=== PATIENT | female | born 1945 | race Caucasian/White ===

== ENCOUNTER → 2024-02-03 10:57 | Outpatient (REF) | payer OTHER, SELFPAY | LOC: HWRAD 10:57 | PROVIDERS: ATTENDING PHYSICIAN Internal Medicine | DX: Z13.820 Encounter for screening for osteoporosis (principal); Z12.31 Encounter for screening mammogram for malignant neoplasm of breast | CPT/HCPCS: 77063; 77067; 77080 ==

== ENCOUNTER → 2024-06-06 12:44 | Outpatient (REF) | payer OTHER, SELFPAY | LOC: HWRAD 12:44 | PROVIDERS: ATTENDING PHYSICIAN Internal Medicine | DX: S00.83XA Contusion of other part of head, initial encounter (principal); W19.XXXA Unspecified fall, initial encounter; Y92.009 Unspecified place in unspecified non-institutional (private) residence as the place of occurrence of the external cause | CPT/HCPCS: 70150 ==

== ENCOUNTER 2025-03-20 02:15 | Inpatient (IN) | payer OTHER, SELFPAY ==
[2025-03-19] VITALS (9 sets, daily range): BP systolic 96–129; BP diastolic 48–85; BMI 34.9
--- NOTE | 2025-03-19 21:06 | ED.GENMED ---
History of Present Illness
<Leny Ruiz NP - Last Filed: 03/22/25 23:26>
General
Chief Complaint: Chest Pain
Source: patient
Exam Limitations: none
Time Seen by Provider: 03/19/25 20:44
Nursing documentation reviewed up to this point in time: agreed with
History of Present Illness
History of Present Illness:
Patient to ED with complaint of chest pain. States she was walking into a store and developed a sudden onset of chest pain. States pain is on the left side and radiates to the right. No n/v/diaphoresis. No SOB. Transported to ED via EMS. Given
1 SL NTG and reports some improvement. No prior history of same. To ED accompanied by daughter.
Past History
<Leny Ruiz BREAKDOWN MAN - Last Filed: 03/22/25 23:26>
Past History
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
ED Past Surgical History: Orthopedic (left knee replacement, cervical spine surgery)
Social History
Tobacco: Non-smoker
Personal:
Living: with family
Review of Systems
<Leny Ruiz BREAKDOWN MAN - Last Filed: 03/22/25 23:26>
Review of Systems
Allergies reviewed?: Yes
All Other Systems: ROS reviewed and negative except as documented in HPI and ROS
Constitutional: Reports no symptoms
EENT: Reports no symptoms
Respiratory: Reports no symptoms
Cardiac: Reports chest pain (left chest radiating to right.)
ABD/GI: Reports no symptoms
: Reports no symptoms
Musculoskeletal: Reports no symptoms
Skin: Reports no symptoms
Neurological: Reports no symptoms
Psychiatric: Reports no symptoms
Phy Exam
<Leny Ruiz BREAKDOWN MAN - Last Filed: 03/22/25 23:26>
General Physical Exam
General Presentation: mild distress
General age: appears stated age
General Skin: warm and dry
General Habitus: normal
General Mental: alert
General Hydration: appears well hydrated
Cardiovascular Exam
Cardiovascular Exam: regular rate/rhythm and no edema
Pulmonary Exam
Pulmonary Exam: lungs clear and no respiratory distress
Gastrointestinal Exam
Gastrointestinal Exam: non tender and soft
Neurological Exam
Neurological Exam: alert, oriented x3, CN II-XII intact, no motor deficits, no sensory deficits and speech normal
Musculoskeletal Exam
Musculoskeletal Exam: full ROM and neuro vasc intact
Skin Exam
Skin Exam: normal color, warm/dry and no rash
Psychiatric Exam
Psychiatric Exam: normal mood/affect
Scores
<Leny Ruiz NP - Last Filed: 03/22/25 23:26>
Heart Score for Chest Pain Patients
STEMI patient?: No
History: Moderately Suspicious
ECG: Normal
Age: >/= 65 years
Risk Factors: >/= 3 Risk Factors or History of CAD
Troponin: >/= 3 x Normal Limit
Heart Score for Chest Pain Patients: 7
Heart Score Risk: 72.7 % MACE over next 6 weeks
Course
<Leny Ruiz NP - Last Filed: 03/22/25 23:26>
Orders/Labs/Results
Orders:
Orders
03/19/25 20:40
Electrocardiogram (*1) Urgent
Reason for Study: Chest Pain
EKG- Treatment ONCE
03/19/25 20:51
Complete Blood Count/With Diff Urgent
Comprehensive Metabolic Panel Urgent
Troponin I Urgent
03/19/25 21:06
Nitroglycerin Sublingual [Nitrostat (Sublingual)] 0.4 mg SL NOW STA
03/19/25 21:52
Electrocardiogram (*1) Urgent
Reason for Study: Chest Pain
EKG- Treatment ONCE
03/19/25 21:55
Morphine Sulfate 2 mg IV NOW STA
Ondansetron Injectable [Zofran] 4 mg IV NOW STA
03/19/25 22:18
Chest/Abd Angio w/wo Contrast CT [CT Chest/abd Angio W/wo Iv Con] Urgent
Comment:
Reason For Exam: r/o dissection
03/19/25 23:00
Flush (0.9% Sodium Chloride) [Flush (Nss)] See Dose Instructions IV PER PROTOCOL
Nitroglycerin 100 mg/250 ml [Nitroglycerin Premix] 100 mg in 250 ml IV PER PROTOCOL
Currently infusing. Continue current dose and titrate:: Yes
Titrate to keep:: Chest Pain Free
Titrate by mcg/min:: 5 mcg/min, may increase by 10 mcg/min if dose > 20 mcg/min
Frequency of titrations (minutes):: every 3-5 minutes
Maximum dose in mcg/min:: 200
Begin to taper infusion when:: Remained at goal for 2hrs
Taper by mcg/min:: 5 mcg/min
Frequency of taper (minutes) if patient maintains goal:: 30
Taper to off?: Yes
If infusion off & no longer maintaining goal:: Contact Provider
03/19/25 23:18
Troponin I Urgent
03/19/25 23:41
PTT Urgent
Comment: Obtain baseline before beginning heparin infusion if not already collected
Heparin 4,000 units IV NOW STA
03/19/25 23:45
Heparin 23919 Units/250 ml 25,000 units in 250 ml IV PER PROTOCOL
Weight to be used for heparin protocol in kilograms (kg):: 78.3
Protocol:: Cardiac Tx/Acute Coronary
PTT Goal Range to be used:: PTT 73 to 111 seconds
Order type:: Initial
INITIAL Infusion Dose (UNITS/KG/hr) & then follow protocol:: 12 units/kg/hr
Infusion Dose in UNITS/hr & then follow protocol (UNITS/hr):: 950
INFUSION RATE in mL/hr & then follow protocol (mL/hr):: 9.5
PTT less than or equal to 64 seconds:: Increase rate by 200 units/hr (+ 2 mL/hr)
PTT 64.1 to 72.9 seconds:: Increase rate by 100 units/hr (+ 1 mL/hr)
PTT 73 to 111 seconds:: Target Range. No change in rate.
PTT 111.1 to 130.9 seconds:: Decrease rate by 100 units/hr (- 1 mL/hr)
PTT 131 to 199.9 seconds:: HOLD for 1 hr. Then decrease rate by 200 units/hr (- 2 mL/hr)
PTT greater than or equal to 200 seconds:: HOLD for 2 hrs & Notify Provider. Then decrease by 200 units/hr (-
2 mL/hr)
Lab follow-up:: Each change, PTT q6h until 2 consecutive are therapeutic. Then PTT
daily.
03/19/25 23:59
Dextrose 50%-Water [Dextrose 50% Syringe] 12.5 grams IV NOW STA
Dextrose 50%-Water [Dextrose 50% Syringe] 25 grams .ROUTE .STK-MED ONE
03/20/25 00:04
Morphine Sulfate 2 mg IV NOW STA
03/20/25 01:03
Admit/Transfer Patient As Directed
Co-Sign Provider:
Level of Care: Inpatient admission
Assign to:: IVU
Physician / Group: Mayito
Diagnosis: NSTEMI
Reason for Hospitalization: chest pain, NSTEMI
Expected length of stay greater than two midnights?: Yes
ELOS- Estimated Length of Stay in days: 2
I certify the patient meets the requirements for IP care: Yes
PRN Pain Medication Management As Directed
May give lesser potent ordered pain med per pt: Yes
preference::
Protocol:: Medication orders for pain may be administered in a
manner that supports deferring to patient preference
when the pt is:
- Requesting an ordered lesser potent pain medication.
Least to most potent pain medications are defined
as: acetaminophen < NSAID < tramadol < opioids
(morphine, oxycodone, hydromorphone).
- Requesting a lesser dose of the same medication IF
ORDERED.
- Requesting a less intrusive route of administration
if both routes are prescribed by the provider (PO <
IV).
03/20/25 01:04
Code Status As Directed
Resuscitation Status: Full Code
03/20/25 03:40
Electrocardiogram (*1) Q6H
Reason for Study: Chest Pain
Comment: at admission and Q3H for total of 3, to be done with each troponin
Acetaminophen [Tylenol] 650 mg PO Q4HPRN PRN
Mag Hydrox/Al Hydrox/Simeth [Maalox] 30 ml PO Q4HPRN PRN
Ondansetron Injectable [Zofran] 4 mg IV Q6HPRN PRN
03/20/25 03:40
Echo 2D MMode Color/Doppler Routine
Reason for Study: chest pain
CARDIOLOGY CONSULT Routine
Consulting Provider: Al Billings
Was physician already notified: Yes
VTE Contraindication Routine
VTE Mechanical Device Contraindication: Medical Contraindication
Pharmocologic Contraindication: Medical Contraindication
Activity As Directed
Activity Level: With Assistance
INT (Intravenous Needle Therapy) As Directed
Comment: maintain peripheral IV access
Intake/ Output As Directed
Frequency: Per unit guidelines
Vital Signs As Directed
Frequency: q4h
Weight As Directed
Frequency: Once
Pulse Ox/spot Check [RESP] Routine
Quantity: 1
Special Instructions: on admission and then every shift if on oxygen
03/20/25 Breakfast
NPO
Allow oral meds: Yes
Allow clear liquids: Sips of Clears
Insulin Aspart Corrective Low [Novolog Flexpen-Low Resistance] See Protocol SC Q6
Levothyroxine [Synthroid] 100 mcg PO DAILY @ 0600
03/20/25 06:11
Basic Metabolic Panel IN AM
Cardiovascular Evaluation IN AM
Complete Blood Count/No Diff IN AM
Glycohemoglobin (HgbA1c) IN AM
NT-proBNP IN AM
PTT Urgent
Troponin I Q6H
Comment: at admit & Q3H for 3 total including ED draws, obtain ECG with each level
03/20/25 08:00
Aspirin Chewable [Low Strength Aspirin] 81 mg PO DAILY
Losartan [Cozaar] 50 mg PO DAILY
03/20/25 09:40
Electrocardiogram (*1) Q6H
Reason for Study: Chest Pain
Comment: at admission and Q3H for total of 3, to be done with each troponin
03/20/25 12:27
Troponin I Q6H
Comment: at admit & Q3H for 3 total including ED draws, obtain ECG with each level
03/20/25 15:40
Electrocardiogram (*1) Q6H
Reason for Study: Chest Pain
Comment: at admission and Q3H for total of 3, to be done with each troponin
03/20/25 18:00
Atorvastatin [Lipitor] 20 mg PO QPM
Abnormal Lab Results
03/19/25 03/19/25 03/19/25
20:51 23:18 23:37
MPV 10.8 H fL
(7.4-10.4)
Chloride 113 H mmol/L
(98-107)
Glucose 193 H mg/dl
(70-99)
Troponin I 0.049 H* ng/ml 0.487 H* D ng/ml
Total Protein 6.0 L g/dl
(6.3-8.2)
POC Glucose 69 L mg/dl
(70-99)
03/19/25 03/20/25
23:56 00:20
MPV
Chloride
Glucose
Troponin I
Total Protein
POC Glucose 64 L mg/dl 157 H mg/dl
(70-99) (70-99)
03/19/25 20:51
03/19/25 20:51
Vital Signs
Initial and Last Documented VS:
Initial Vital Signs
Pulse Resp BP Pulse Ox
68 10 129/65 100
03/19/25 20:36 03/19/25 20:36 03/19/25 20:36 03/19/25 20:36
Last Documented Vital Signs
Temp Pulse Resp BP Pulse Ox
98.5 F 67 16 108/90 96
03/22/25 22:55 03/22/25 22:55 03/22/25 22:55 03/22/25 19:00 03/22/25 22:55
<Idalmis Vu, DO - Last Filed: 03/19/25 23:24>
Orders/Labs/Results
Orders:
Orders
03/19/25 20:40
Electrocardiogram (*1) Urgent
Reason for Study: Chest Pain
EKG- Treatment ONCE
03/19/25 20:51
Complete Blood Count/With Diff Urgent
Comprehensive Metabolic Panel Urgent
Troponin I Urgent
03/19/25 21:06
Nitroglycerin Sublingual [Nitrostat (Sublingual)] 0.4 mg SL NOW STA
03/19/25 21:52
Electrocardiogram (*1) Urgent
Reason for Study: Chest Pain
EKG- Treatment ONCE
03/19/25 21:55
Morphine Sulfate 2 mg IV NOW STA
Ondansetron Injectable [Zofran] 4 mg IV NOW STA
03/19/25 22:18
Chest/Abd Angio w/wo Contrast CT [CT Chest/abd Angio W/wo Iv Con] Urgent
Comment:
Reason For Exam: r/o dissection
03/19/25 23:00
Flush (0.9% Sodium Chloride) [Flush (Nss)] See Dose Instructions IV PER PROTOCOL
Nitroglycerin 100 mg/250 ml [Nitroglycerin Premix] 100 mg in 250 ml IV PER PROTOCOL
Currently infusing. Continue current dose and titrate:: Yes
Titrate to keep:: Chest Pain Free
Titrate by mcg/min:: 5 mcg/min, may increase by 10 mcg/min if dose > 20 mcg/min
Frequency of titrations (minutes):: every 3-5 minutes
Maximum dose in mcg/min:: 200
Begin to taper infusion when:: Remained at goal for 2hrs
Taper by mcg/min:: 5 mcg/min
Frequency of taper (minutes) if patient maintains goal:: 30
Taper to off?: Yes
If infusion off & no longer maintaining goal:: Contact Provider
03/19/25 23:18
Troponin I Urgent
03/19/25 23:41
PTT Urgent
Comment: Obtain baseline before beginning heparin infusion if not already collected
Heparin 4,000 units IV NOW STA
03/19/25 23:45
Heparin 81398 Units/250 ml 25,000 units in 250 ml IV PER PROTOCOL
Weight to be used for heparin protocol in kilograms (kg):: 78.3
Protocol:: Cardiac Tx/Acute Coronary
PTT Goal Range to be used:: PTT 73 to 111 seconds
Order type:: Initial
INITIAL Infusion Dose (UNITS/KG/hr) & then follow protocol:: 12 units/kg/hr
Infusion Dose in UNITS/hr & then follow protocol (UNITS/hr):: 950
INFUSION RATE in mL/hr & then follow protocol (mL/hr):: 9.5
PTT less than or equal to 64 seconds:: Increase rate by 200 units/hr (+ 2 mL/hr)
PTT 64.1 to 72.9 seconds:: Increase rate by 100 units/hr (+ 1 mL/hr)
PTT 73 to 111 seconds:: Target Range. No change in rate.
PTT 111.1 to 130.9 seconds:: Decrease rate by 100 units/hr (- 1 mL/hr)
PTT 131 to 199.9 seconds:: HOLD for 1 hr. Then decrease rate by 200 units/hr (- 2 mL/hr)
PTT greater than or equal to 200 seconds:: HOLD for 2 hrs & Notify Provider. Then decrease by 200 units/hr (-
2 mL/hr)
Lab follow-up:: Each change, PTT q6h until 2 consecutive are therapeutic. Then PTT
daily.
03/19/25 23:59
Dextrose 50%-Water [Dextrose 50% Syringe] 12.5 grams IV NOW STA
Dextrose 50%-Water [Dextrose 50% Syringe] 25 grams .ROUTE .STK-MED ONE
03/20/25 00:04
Morphine Sulfate 2 mg IV NOW STA
03/20/25 01:03
Admit/Transfer Patient As Directed
Co-Sign Provider:
Level of Care: Inpatient admission
Assign to:: IVU
Physician / Group: Mayito
Diagnosis: NSTEMI
Reason for Hospitalization: chest pain, NSTEMI
Expected length of stay greater than two midnights?: Yes
ELOS- Estimated Length of Stay in days: 2
I certify the patient meets the requirements for IP care: Yes
PRN Pain Medication Management As Directed
May give lesser potent ordered pain med per pt: Yes
preference::
Protocol:: Medication orders for pain may be administered in a
manner that supports deferring to patient preference
when the pt is:
- Requesting an ordered lesser potent pain medication.
Least to most potent pain medications are defined
as: acetaminophen < NSAID < tramadol < opioids
(morphine, oxycodone, hydromorphone).
- Requesting a lesser dose of the same medication IF
ORDERED.
- Requesting a less intrusive route of administration
if both routes are prescribed by the provider (PO <
IV).
03/20/25 01:04
Code Status As Directed
Resuscitation Status: Full Code
03/20/25 03:40
Electrocardiogram (*1) Q6H
Reason for Study: Chest Pain
Comment: at admission and Q3H for total of 3, to be done with each troponin
Acetaminophen [Tylenol] 650 mg PO Q4HPRN PRN
Mag Hydrox/Al Hydrox/Simeth [Maalox] 30 ml PO Q4HPRN PRN
Ondansetron Injectable [Zofran] 4 mg IV Q6HPRN PRN
03/20/25 03:40
Echo 2D MMode Color/Doppler Routine
Reason for Study: chest pain
CARDIOLOGY CONSULT Routine
Consulting Provider: Al Billings
Was physician already notified: Yes
VTE Contraindication Routine
VTE Mechanical Device Contraindication: Medical Contraindication
Pharmocologic Contraindication: Medical Contraindication
Activity As Directed
Activity Level: With Assistance
INT (Intravenous Needle Therapy) As Directed
Comment: maintain peripheral IV access
Intake/ Output As Directed
Frequency: Per unit guidelines
Vital Signs As Directed
Frequency: q4h
Weight As Directed
Frequency: Once
Pulse Ox/spot Check [RESP] Routine
Quantity: 1
Special Instructions: on admission and then every shift if on oxygen
03/20/25 Breakfast
NPO
Allow oral meds: Yes
Allow clear liquids: Sips of Clears
Insulin Aspart Corrective Low [Novolog Flexpen-Low Resistance] See Protocol SC Q6
Levothyroxine [Synthroid] 100 mcg PO DAILY @ 0600
03/20/25 06:11
Basic Metabolic Panel IN AM
Cardiovascular Evaluation IN AM
Complete Blood Count/No Diff IN AM
Glycohemoglobin (HgbA1c) IN AM
NT-proBNP IN AM
PTT Urgent
Troponin I Q6H
Comment: at admit & Q3H for 3 total including ED draws, obtain ECG with each level
03/20/25 08:00
Aspirin Chewable [Low Strength Aspirin] 81 mg PO DAILY
Losartan [Cozaar] 50 mg PO DAILY
03/20/25 09:40
Electrocardiogram (*1) Q6H
Reason for Study: Chest Pain
Comment: at admission and Q3H for total of 3, to be done with each troponin
03/20/25 12:27
Troponin I Q6H
Comment: at admit & Q3H for 3 total including ED draws, obtain ECG with each level
03/20/25 15:40
Electrocardiogram (*1) Q6H
Reason for Study: Chest Pain
Comment: at admission and Q3H for total of 3, to be done with each troponin
03/20/25 18:00
Atorvastatin [Lipitor] 20 mg PO QPM
Abnormal Lab Results
03/19/25 03/19/25 03/19/25
20:51 23:18 23:37
MPV 10.8 H fL
(7.4-10.4)
Chloride 113 H mmol/L
(98-107)
Glucose 193 H mg/dl
(70-99)
Troponin I 0.049 H* ng/ml 0.487 H* D ng/ml
Total Protein 6.0 L g/dl
(6.3-8.2)
POC Glucose 69 L mg/dl
(70-99)
03/19/25 03/20/25
23:56 00:20
MPV
Chloride
Glucose
Troponin I
Total Protein
POC Glucose 64 L mg/dl 157 H mg/dl
(70-99) (70-99)
03/19/25 20:51
03/19/25 20:51
Vital Signs
Initial and Last Documented VS:
Initial Vital Signs
Pulse Resp BP Pulse Ox
68 10 129/65 100
03/19/25 20:36 03/19/25 20:36 03/19/25 20:36 03/19/25 20:36
Last Documented Vital Signs
Temp Pulse Resp BP Pulse Ox
98.5 F 67 16 108/90 96
03/22/25 22:55 03/22/25 22:55 03/22/25 22:55 03/22/25 19:00 03/22/25 22:55
<Idalmis Vu DO - Last Filed: 03/19/25 23:24>
*Critical Care Note
Total Time (30-74mins, 75-104mins- exclusive of procedures): 42
comment:
The high probability of a clinically significant, sudden or life threatening deterioration of the cardiopulmonary system(s), NSTEMI, required my full and direct attention, intervention and personal management. The aggregate critical care time was 42
minutes. This time is in addition to time spent performing reported procedures but includes the following:
[x] Data Review and interpretation
[x] Patient assessment and monitoring of vital signs
[x] Documentation
[x] Medication orders and management
<Leny Ruiz NP - Last Filed: 03/22/25 23:26>
Update Note
Update Note:
Patient to ED wtih chest pain, anterior left radiating to right. Pain came on suddenly while shopping. No associated n/v/diaphoresis, SOB. Pain readiated to bilateral jaws. She was ginve NTG SL x 1 by EMS, reports pain dropped to 8/10. Given
2nd dose in ED iwthout improvement. Given 2mg IV MSO4, pain decreased to 2/10. Nitro drip initiated. EKG x 2 reviewed, both NSR. Initial troponin 0.049. 2nd trop[address] neg. Dr. Billings consulted. Agrees [facility] plan for Nitro infusion, heparain
infusion if CTA neg. Patient will be admitted to hospitalist service. Discussed with Dr. Vu who also evaluated this pateint, agrees with findings and plan.
Chest CT neg for dissection. Troponin #[address] Billings notified. Patient still with 3/10 chest pain. Continuing to titrate NTG. Given additional 2mg IV MS04. Blood sugar 67. She took her PM insulin prior to shopping tonight and has not
eaten. SHe was given 12.5g D50. BS recheck pending. She remains awake and alert.
Repeat beside glucose 151 as per nursing.
ED Attending Note
<Leny Ruiz NP - Last Filed: 03/22/25 23:26>
-
Portions of this chart may have been created with voice recognition software.� Occasional wrong word or��sound alike� substitutions may have occurred due to the inherent limitations of voice recognition software.
<Idalmis Vu DO - Last Filed: 03/19/25 23:24>
ED Attending Note
Patient seen and examined by attending physician: Yes
I performed the substantive portion of visit, reviewed & personally made and approve the management plan that is documented in note by myself or LALA.: Yes
I performed a history and physical exam of patient and discussed management with resident, I reviewed resident's note and agree with documented findings and plan of care.: Yes
ED Attending Note:
79-year-old female presenting to the emergency department for acute onset of chest pain, which started while she was shopping. Notes that the pain is all across her chest. Daughter at bedside, does note that yesterday she was having some
left-sided jaw pain. Denies known history of cardiac disease. Medics were called and patient was given nitroglycerin en route, without any symptomatic relief. Patient denies any known history. Vital signs on arrival are normal.
Patient had screening EKG on arrival, without acute ischemic abnormality. However, given acute onset of symptoms, initial plan for laboratory analysis including troponin. Will administer morphine for pain given no success with nitroglycerin.
Differential considerations include ACS, chest wall pain, aortic pathology. Lower suspicion for aortic catastrophe given normal blood pressure. Will continue to monitor.
22:30 - Patient with elevated troponin. EKG repeated, no interval changes. Will plan to discuss with cardiology in the setting of NSTEMI.
23:10 - Per cardiology, recommending nitroglycerin heparin drip. Plan for CT chest for rule out dissection. Ultimate plan for admission for troponin trending and likely cardiac catheterization.
Discharge Plan
Departure
Patient Disposition: Admit
Date of Disposition: 03/19/25
Time of Disposition: 23:28
Presentation/result/management discussed w/ accepting MD/DO: Hospitalist
Patient with high blood pressure during this ER visit?: No
Condition: Fair
Covid-19: Not Applicable
Discharge Problem:
Acute non-ST elevation myocardial infarction (NSTEMI)
Interventions
Interventions:
*Risk Screen - Suicide Last Done: 03/19/25 20:41
*General Assessment Last Done: 03/19/25 20:41
*Neglect/Abuse Screening Last Done: 03/19/25 20:41
*ED- Fall Risk Assessment Last Done: 03/19/25 20:41
*ED COVID-19 Vaccine History Last Done: 03/19/25 20:41
*Nursing Disposition Last Done: 03/20/25 03:24
ED- Cardiac Assessment Last Done: 03/19/25 21:00
Discharge Date and Time
Discharge Date/Time: 03/20/25 03:25
[2025-03-19 21:07] LABS: % Basophils 0.1 % (0-2); % Eosinophils 3.1 % (0-6); % Immature Granulocytes 0.3 % (0-0.5); % Lymphocytes 35.7 % (20.5-51.1); % Neutrophils 52.8 % (42.2-75.2); Absolute Eosinophils 0.2 10^3/uL (0-0.7); Absolute Lymphocytes 2.6 10^3/uL (1.2-3.4); Absolute Monocytes 0.6 10^3/uL (0.1-0.6); Absolute Neutrophils 3.9 10^3/uL (1.4-6.5); Hemoglobin 12.5 g/dL (12.0-16.0); Mean Corp Hgb Conc. 33.8 g/dL (33.0-37.0); Mean Corpuscular Hgb 28.7 pg (27.0-31.0); Mean Corpuscular Volume 84.9 fL (81.0-99.0); Mean Platelet Volume 10.8 fL (7.4-10.4); Nucleated Red Blood Cells % 0 %; Platelet Count 150 10^3/uL (130-400); Red Blood Cell Count 4.36 10^6/uL (4.20-5.40); Red Cell Dist. Width 13.9 % (11.5-14.5); White Blood Cell Count 7.4 10^3/uL (4.8-10.8)
[2025-03-19] MEDS: NITROSTAT (SUBLINGUAL) 0.4 MG SL (21:15)
[2025-03-19 21:17] LABS: ALT (SGPT) 16 U/L (0-35); AST (SGOT) 21 U/L (14-36); Albumin 3.7 g/dl (3.5-5.0); Alkaline Phosphatase 94 U/L (38-126); Blood Urea Nitrogen 17 mg/dl (7-17); Calcium 9.3 mg/dl (8.4-10.2); Carbon Dioxide 25 mmol/L (22-30); Chloride 113 mmol/L (98-107); Estimated Creatinine Clearance 57 ml/min; Glucose 193 mg/dl (70-99); Potassium 4.3 mmol/L (3.5-5.1); Sodium 144 mmol/L (135-145); Total Bilirubin 0.7 mg/dl (0.2-1.3); eGFR > 60.00
[2025-03-19 21:38] LABS: Troponin I 0.049 ng/ml
[2025-03-19] MEDS: MORPHINE SULFATE 2 MG IV (22:18)
[2025-03-19] MEDS: ZOFRAN 4 MG IV (22:19)
[2025-03-19 23:40] LABS: Glucose - Point of Care 69 mg/dl (70-99)
[2025-03-19] MEDS: NITROGLYCERIN PREMIX 250 IV (23:42)
[2025-03-19 23:50] LABS: Troponin I 0.487 ng/ml
[2025-03-19 23:58] LABS: Glucose - Point of Care 64 mg/dl (70-99)
[2025-03-20] VITALS (30 sets, daily range): BP systolic 74–147; BP diastolic 43–87; BMI 33.8
[2025-03-20] MEDS: DEXTROSE 50% SYRINGE 12.5 GRAMS IV (00:01)
[2025-03-20] MEDS: HEPARIN 4000 UNITS IV (00:10)
[2025-03-20] MEDS: HEPARIN 25000 UNITS/250 ML IV (00:12)
[2025-03-20] MEDS: MORPHINE SULFATE 2 MG IV (00:12)
[2025-03-20 00:21] LABS: Glucose - Point of Care 157 mg/dl (70-99)
--- NOTE | 2025-03-20 00:38 | HPS.HSE ---
Family Physician
-
Family Physician: Elisabeth Jc
Chief Complaint
-
Chest pain
History of Present Illness
This is a 79-year-old female with past medical history of hypertension, insulin-dependent diabetes, hypothyroid, hyperlipidemia presenting to the emergency department with episode of chest pain at home.
Patient while doing shopping with daughter using a walker started to have substernal chest pain. She reports that the chest pain was radiating across the chest and felt like she was hit by a bus. This occurred at around 7:30 PM. She has some
shortness of breath at that time. Denies any nausea vomiting lightheadedness dizziness or palpitations.
Prior to that episode at around 530 she did complain of some cough as well as some teeth pain. At that time she took 2 doses of full-strength aspirin 3.5 mg.
Patient denies recent episodes of shortness of breath, exertional dyspnea, exertional chest pain, palpitations, lower extremity swelling orthopnea or PND. She has no prior history of CAD. She has no prior history of blood clots. She had a fall
about 2 weeks ago with left-sided black/flank bruising that appears to have resolved.
In the emergency department she was afebrile, blood pressure was 122/55 with a pulse of 73 and she had oxygen saturation of 98% on room air. ECG shows a normal sinus rhythm at a rate of 66. Troponin was elevated at 0.5. CBC was unremarked.
Electrolytes BUN and creatinine were normal. She had a CT angio of the chest as well as the abdomen which showed no thoracic aneurysm or acute dissection. There was no central pulmonary embolism.
Medical History
Past Medical History
Past Medical History: Reports HTN, Hypercholesterolemia, Hypothyroidism and IDDM
Additional Past Medical History:
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
Past Surgical History: Reports Cholecystectomy and Orthopedic (Cervical spine surgery, knee arthroplasty,)
Social History
Tobacco: Non-smoker
Alcohol: None
Drug: None
Living: With Family
Employment: Retired
Family History
Family History: Not pertinent
Allergies / Home Medications
Allergies reflects when Allergies were last updated in [facility].
Home Medications with original date entered in [facility]
Allergy/Medication List:
Allergies
Allergy/AdvReac Type Severity Reaction Status Date / Time
ciprofloxacin [From Cipro] Allergy Pharmacy Verified 03/19/25 22:25
to Review
morphine AdvReac Itching Verified 03/19/25 22:24
Home Medications
Losartan 100 mg tablet, 100 mg p.o. daily
Levothyroxine 100 mcg tablet, 100 mcg p.o. daily
Lantus 4 units injection, 4 units injected at bedtime
Insulin sliding scale
Pravastatin 40 mg tablet, 40 mg p.o. daily
Review of Systems
-
History Source: Patient and Family
Constitutional: Reports No Symptoms
EENT: Reports No Symptoms
Respiratory: Reports No Symptoms
Cardiac: Reports Chest Pain
Abdomen/GI: Reports No Symptoms
: Reports No Symptoms
Musculoskeletal: Reports No Symptoms
Skin: Reports No Symptoms
Neurological: Reports No Symptoms
Endocrine: Reports No Symptoms
Hematologic/Lymphatic: Reports No Symptoms
Psych: Reports No Symptoms
Physical Exam
Vital Signs
Vital Signs
Pulse Resp BP Pulse Ox
75 13 122/55 99
03/20/25 00:30 03/20/25 00:30 03/20/25 00:00 03/20/25 00:30
Physical Exam
General: Well Developed, Well Nourished, No Apparent Distress and Comfortable
HEENT: NormoCephalic, Anicteric, Moist mucous membranes and Atraumatic
Respiratory: Clear
Cardiac: S1/S2 and Regular Rhythm
Breast: Deferred by me
GI: Soft, Non Tender and Normal Bowel Sounds
Rectal: Deferred by Provider
Genito-urinary: Deferred by me
Musculoskeletal: No Clubbing, No Cyanosis and No Edema
Skin: Warm
Neuro: AO x 3 and Nonfocal/grossly intact
Hematologic/Lymphatic: No Lymphadenopathy
Psych: Calm
Laboratory Results
-
03/19/25 20:51
03/19/25 20:51
Laboratory Results
Total Bilirubin 0.7 mg/dl (0.2-1.3) 03/19/25 20:51
AST 21 U/L (14-36) 03/19/25 20:51
ALT 16 U/L (0-35) 03/19/25 20:51
Alkaline Phosphatase 94 U/L (38-126) 03/19/25 20:51
Troponin I 0.487 ng/ml H* D 03/19/25 23:18
Data Reviewed
-
CT Scan: Report Reviewed by me
Medical Tests (Nuc Med, Echo, EKG etc): Image Personally Visualized and interpreted
Lab Data: Labs Reviewed by me
Old Records: Reviewed
Impression/Plan
-
IMPRESSION:
79-year-old with history of insulin-dependent diabetes, hypertension hyperlipidemia and hypothyroid who presents emergency department with acute episode of chest pain relieved by nitroglycerin and found to have NSTEMI with a troponin of 0.4. CT
angio was negative for dissection PE or aneurysm. She is currently chest pain-free on a nitroglycerin drip.
PLAN:
NSTEMI -
-admit to IVU
-N.p.o.
-Continue nitroglycerin drip titrated to pain control and BP
-Continue heparin drip
-Status post aspirin 325, continue aspirin 81 daily for now
-Check BMP, lipid panel A1c and echo
-Cardiology consulted
Type 2 diabetes�patient on Lantus 4 units at home which she took last night. Had a hypoglycemic episode in the ED and required half an amp of dextrose.
-Bedside glucose every 6 hours
-Sliding scale insulin for now
-Holding for the Lantus
Hypothyroid
-Continue levothyroxine 100 mcg
DVT prophylaxis�on heparin
CODE STATUS�full code
[2025-03-20 00:54] LABS: APTT 28.3 Sec (23.4-35.0)
[2025-03-20 03:49] LABS: Glucose - Point of Care 104 mg/dl (70-99)
--- NOTE | 2025-03-20 04:20 | PTCARENOTE ---
Pt admitted to room 2264. Pt is AAOx3. BENNETT. SR w/ occasional PVC's on the tele monitor. HR 50-60s. BP stable. Palpable pulses throughout. No edema. Pt states they experience some chest pain w/ movement. No CP while laying still in the bed. Nitro
infusion turned OFF by Ed nurse upon arrival to CVICU. Pt 98% on RA. Lung sounds audible. Denies SOB. Abdomen soft/nontender. +BS. Pure wick in place. Pt NPO for possible veterinarian laboratory animal care procedure. PIV x3 intact. Heparin infusing as ordered. Admission
questions completed. Bed weight obtained. Medication reconciliation not fully complete - pt did not know doses of all home meds. Daughter at the bedside. Questions answered. See worklist for full nursing assessment and interventions. Call chavez
within reach.
--- NOTE | 2025-03-20 04:43 | PTCARENOTE ---
Pt takes 4 units injection Lantus at bedtime. Unable to add to med list under summary.
[2025-03-20] MEDS: SYNTHROID 100 MCG PO (06:19)
[2025-03-20 06:20] LABS: Glucose - Point of Care 87 mg/dl (70-99)
[2025-03-20 06:22] LABS: Hematocrit 35.7 % (37.0-47.0); Hemoglobin 12.1 g/dL (12.0-16.0); Mean Corp Hgb Conc. 33.9 g/dL (33.0-37.0); Mean Corpuscular Hgb 29.2 pg (27.0-31.0); Mean Corpuscular Volume 86.2 fL (81.0-99.0); Platelet Count 142 10^3/uL (130-400); Red Blood Cell Count 4.14 10^6/uL (4.20-5.40)
[2025-03-20 06:48] LABS: Blood Urea Nitrogen 13 mg/dl (7-17); Calcium 9.2 mg/dl (8.4-10.2); Carbon Dioxide 27 mmol/L (22-30); Chloride 113 mmol/L (98-107); Estimated Creatinine Clearance 56 ml/min; Glucose 91 mg/dl (70-99); HDL Cholesterol 41 mg/dl; LDL Cholesterol, Calculated 107 mg/dl; Potassium 4.1 mmol/L (3.5-5.1); Sodium 143 mmol/L (135-145); Total Cholesterol 162 mg/dl (50-199); Triglyceride 71 mg/dl (10-149); Very Low Density Lipoprotein 14 mg/dl (0-30); eGFR > 60.00
[2025-03-20 06:51] LABS: APTT > 200 Sec (23.4-35.0)
[2025-03-20 06:58] LABS: NT-proBNP 697 pg/ml; Troponin I 0.797 ng/ml
--- NOTE | 2025-03-20 08:23 | CON.CAR ---
Consultation
Consultation Request
Date/Time Consultation Requested: 03/20/2025; 03:40
Date/Time Consultation Performed: 03/20/2025; 08:24
Requesting Provider: Tamara Edmond M.D.
Performing Provider: Vinny Mahoney D.O.
Reason for Consultation: NSTEMI
Medical History
-
Chief Complaint: Chest pain.
History of Present Illness:
79 y/o female with HTN, HLD and IDDM2 presenting with chest pain. The pain began when she was shopping with her daughter last evening. She took two doses of ASA 325 mg. She went shopping with her daughter and developed chest pain/pressure while
walking into [place]. The pressure continued to increase and EMS was called. She presented to [facility] and was diagnosed with NSTEMI after CT r/o dissection and PE. EKG shows no ischemia. Troponin is trending up. She was started on a heparin gtt
and a nitro gtt and is now pain free. Nitro gtt weaned off due to hypotension.
Past Medical History
Past Medical History: HTN, Hypercholesterolemia and IDDM
Social History
Tobacco: Non-Smoker
Alcohol: None
Drug: None
Living: Alone
Employment: Retired
Family History
Family History: Reviewed & Not Pertinent
Allergies / Home Medications
Allergy/AdvReac Type Severity Reaction Status Date / Time
ciprofloxacin [From Cipro] Allergy Pharmacy Verified 03/19/25 22:25
to Review
morphine AdvReac Itching Verified 03/19/25 22:24
�Medication �Instructions �Recorded �Confirmed �Type
oxycodone-acetaminophen 5 mg-325 1 ea PO .Q6HRS ##20 02/09/11 03/20/25 Rx
mg tablet (Percocet)
hydrocodone 5 mg-acetaminophen 500 1 tab PO .Q4-6HPRN PRN PAIN ##20 11/13/13 03/20/25 Rx
mg tablet
cephalexin 500 mg capsule 500 mg PO QID #28 caps 01/31/18 03/20/25 Rx
Synthroid 100 mcg DAILY 03/20/25 03/20/25 History
losartan 100 mg DAILY 03/20/25 03/20/25 History
pravastatin 40 mg DAILY 03/20/25 03/20/25 History
Review of Systems
-
History Source: Patient
Constitutional: No Symptoms
EENT: No Symptoms
Respiratory: Trouble Breathing
Cardiac: Chest Pain
Abdomen/GI: No Symptoms
: No Symptoms
Musculoskeletal: No Symptoms
Endocrine: No Symptoms
Physical Exam
Vital Signs
Temp Pulse Resp BP Pulse Ox
36.6 C 56 12 116/50 95
03/20/25 03:32 03/20/25 06:17 03/20/25 06:17 03/20/25 06:17 03/20/25 05:15
Lab Results
03/20/25 06:11
03/20/25 06:11
Troponin I 0.797 ng/ml H* D 03/20/25 06:11
Yej-N-Zmjhvbiabcw Pept 697 pg/ml 03/20/25 06:11
Physical Exam
General: Well Developed, Well Nourished, No Apparent Distress, Comfortable and Good Appetite
HEENT: Normocephalic, Anicteric and Moist Mucous Membranes
Respiratory: Clear and Non Labored Respirations
Cardiac: S1/S2 and Regular Rhythm
Breast: Deferred by me
GI: Soft, Non Tender, Non Distended and Normal Bowel Sounds
Rectal: Deferred by Provider
Musculoskeletal: No Clubbing, No Cyanosis and No Edema
Skin: Warm and Dry
Neuro: AO x 3
Psych: Calm
Impression / Plan
-
Impression/Plan: 79 y/o female with IDDM, HTN, HLD admitted with NSTEMI.
#NSTEMI
-Acute, threat to life.
-Chest pain free on nitro gtt.
-Troponin = 0.049 --> 0.487 --> 0.797
-Continue heparin.
-Coronary angiography today to clarify coronary anatomy.
-Aspirin 325 mg now, then 81 mg daily. Hold P2Y12i.
-Echocardiogram ordered/pending.
#HTN
-Chronic, controlled.
-Titrate nitro gtt (currently off - hypotensive overnight).
-Hold home losartan and restart after angiography.
#HLD
-Chronic.
-Total cholesterol = 162, LDL = 107, HDL = 41, Triglycerides = 71.
-D/C pravastatin.
-Start atorvastatin 40 mg daily.
-Goal LDL < 55.
#IDDM2
-Chronic, complicated by neuropathy.
-Insulin per primary service.
-If patient does indeed have CAD, she would benefit from GLP-1 agonists at discharge.
Data Reviewed
-
EKG: Tracing Personally Visualized and interpreted, Report Reviewed by me and Discussed with Patient
CT Scan: Image Personally Visualized and interpreted and Discussed with Patient
Labs: Labs Reviewed by me, Discussed with Physician and Discussed with Patient
[2025-03-20] MEDS: COZAAR 50 MG PO (08:40)
[2025-03-20] MEDS: LOW STRENGTH ASPIRIN 81 MG PO (08:40)
--- NOTE | 2025-03-20 08:40 | PTCARENOTE ---
Assumed care of patient at 0700. Pt is awake, alert, and oriented. Forgetful at times. Pt remains SB/SR with HR 50's-60's. BP 109/55 MAP 73. Pulse oximetry 97% on room air. Pt currently NPO. Pt with Purewick in place. Pt currently with heparin gtt
on hold due to elevated PTT, will resume at 0924. Nitro gtt remains off. Pt remains chest pain free.
[2025-03-20 09:33] LABS: Glycohemoglobin (HgbA1c) 7.1 % (4.0-5.6)
--- NOTE | 2025-03-20 09:37 | W.PN.HOSP.TC ---
Today's Communication/Plan
-
NPO for cardiac cath
Assessment / Plan
Assessment / Plan
This is a 79-year-old female with past medical history of hypertension, insulin-dependent diabetes, hypothyroid, hyperlipidemia presenting to the emergency department with episode of chest pain at home, admitted with NSTEMI.
NSTEMI
-admitted to IVU
-NPO for cardiac cath
-nitro gtt off overnight
-Continue heparin drip
-Status post aspirin 325, continue aspirin 81 daily for now
-F/U TTE
-replace Pravastatin with Lipitor
Type 2 diabetes�patient on Lantus 4 units at home which she took last night. Had a hypoglycemic episode in the ED and required half an amp of dextrose.
-Bedside glucose every 6 hours
-Sliding scale insulin for now
-Holding for the Lantus
Hypothyroid
-Continue levothyroxine 100 mcg
Essential HTN
-hold Losartan pre-cath
DVT prophylaxis�on heparin
CODE STATUS�full code
Anticipated Discharge: 24 - 48 hours
Subjective/Interval History
-
Date of Service: March 20, 2025
chest pain free this morning
IV nitro drip off overnight with lower blood pressure
Objective Data
-
Labs:
Laboratory Results
03/20/25 03/20/25
00:02 06:11
WBC 8.0
Hgb 12.1
Hct 35.7 L
Plt Count 142
APTT 28.3 > 200 H*
Sodium 143
Potassium 4.1
Chloride 113 H
Carbon Dioxide 27
BUN 13
Creatinine 0.7
Glucose 91
Calcium 9.2
Vital Signs:
Vital Signs
Temp Pulse Resp BP Pulse Ox
97.7 F 58 16 96/75 98
03/20/25 08:38 03/20/25 09:30 03/20/25 09:30 03/20/25 09:00 03/20/25 09:30
I&O
03/19/25 03/20/25 03/21/25
06:59 06:59 06:59
Intake Total 28.5 / 28.5 0 / 0
Balance 28.5 / 28.5 0 / 0
Review of Systems
-
History Source: Patient
All other systems: Reviewed and negative
Physical Exam
-
General: No Apparent Distress
HEENT: PERRLA
Respiratory: Clear to Auscultation; Negative Wheezes
Cardiac: Regular Rhythm and S1/S2
GI: Soft and Nontender
Musculoskeletal: No Edema
Skin: Warm and Dry; Negative Rash
Neuro: AO x 3
Psych: Calm
Data Reviewed
-
Diagnostic Radiology: Report Reviewed by me
Labs: Labs Reviewed by me
--- NOTE | 2025-03-20 11:11 | PTCARENOTE ---
No void, bladder scan 700mL. Pt placed on bedpan, able to void large void. 175mL in bedpan and large amount of urine spilled onto underlying pad. Pt remains SR/SB currently HR 59. BP 103/48 MAP 65. Pulse oximetry 98% on room air. No complaints of
chest pain. Remains on Heparin gtt.
--- NOTE | 2025-03-20 11:42 | CM ---
Reviewed chart. Met with Mrs. Conte to review discharge plans. She states prior to admission she resides with her son in a second floor condo with an elevator. She states prior to admission she ambulates with a rolling walker and independent with
adls. She states she has a rolling walker. She states she had [facility] in the distant past. She states she has a prescription plan and [facility]. Will need to see her current functional level to see if she will have any skilled
care needs. Medical work-up in progress. The discharge plan is to return home with her son when medically stable.
[2025-03-20 12:28] LABS: Glucose - Point of Care 85 mg/dl (70-99)
[2025-03-20 13:04] LABS: Troponin I 0.367 ng/ml
[2025-03-20] MEDS: NITROSTAT (SUBLINGUAL) 0.4 MG SL (14:02)
--- NOTE | 2025-03-20 14:30 | PTCARENOTE ---
Pt bushing teeth in bed, began to experience 10/10 chest pain. BP 147/78 MAP 97. Pt SR HR 64. Cardiology APPLE SORTER and MD made aware. EKG completed. Sublingual Nitro x1 administered. Repeat BP 112/60 MAP 74. Pt reports 7/10 chest pain following Nitro. Pt
brought to trestle mainternance laborer. Heparin gtt placed on hold at time of transfer.
[2025-03-20 15:03] LABS: ACT-LR - POC 343 Seconds (116-155)
[2025-03-20 15:49] LABS: ACT-LR - POC 298 Seconds (116-155)
--- NOTE | 2025-03-20 16:30 | PTCARENOTE ---
Pt back from construction or leak gang laborer. Pt SB HR 50's. BP 111/56 MAP 73. Pulse oximetry 100% on room air. Right radial band in place. Right groin dressing CDI. Pedal pulses and right radial pulse palpable.
[2025-03-20] MEDS: NOVOLOG FLEXPEN-LOW RESISTANCE SC (18:10)
[2025-03-20] MEDS: LIPITOR 40 MG PO (18:10)
[2025-03-20 18:15] LABS: Glucose - Point of Care 95 mg/dl (70-99)
--- NOTE | 2025-03-20 19:39 | ITS.CL.PN ---
Fruit Picker Machine Operator - Procedure Note
Procedure
Procedure Note:
CARDIAC CATHETERIZATION REPORT
Date of Procedure: 03/20/2025
Referring: Dr. Pablito Rojo MD
Indication: high-risk NSTEMI
Note: Patient initially admitted for NSTEMI with plan for early invasive strategy. On day of planned cath, she had an episode of severe chest pain while brushing her teeth and was taken emergently to the slab off mill tender given concern for evolving acute NH.
PROCEDURE(S)
1. left heart catheterization
2. coronary angiography
3. IVUS LAD
4. PCI with TAWANDA for acute NH to LAD
5. IVUS RCA
6. PCI with TAWANDA to RCA
ACCESS:
1. 6F right radial artery (closure: radial band; abandoned due to severe spasm)
2. 6F right femoral artery (closure: Angioseal x1)
CATHETERS
1. 6F JR4
2. 6F JL3.5
3. 6F EBU3.5 guide
4. 6F JR4 guide
MODERATE SEDATION: 60 minutes of moderate sedation was utilized. An independent medical scientific liaison was present to assist with and help manage the patient's level of consciousness and physiologic status.
HEMODYNAMIC DATA
LV 96/8 (EDP 14) mmHg
AO 95/44 (mean 66) mmHg
CORONARY ANGIOGRAPHY
Dominance: right
LM: large, minimal disease
LAD: large vessel giving rise to a moderate caliber D1, small D2, and small D3. There is a 60% stenosis spanning D2 and 99% stenosis just between D2 and D3 with TIMI2 flow to the apex. There is focal moderate disease in the ostial D1.
LCx: moderate caliber giving rise to single moderate caliber OM1 with severe long segment disease leading into the OM
RCA: large vessel giving rise to a moderate caliber RPDA, moderate caliber RPL1, and small RPL2. There is moderate disease through the mid to distal RCA with a 95% focal stenosis in the mid vessel.
At the conclusion of diagnostic angiography the patient developed severe chest pain suggestive of ongoing active infarction of the LAD. We then proceeded with emergent PCI of the LAD.
PCI with TAWANDA to LAD for acute NH
Heparin was given to achieve ACT>300. An EBU3.5 guide catheter was seated in the left main and a Runthrough wire deposited in the distal LAD. Initial lesion preparation was performed with a 2.0 balloon which resulted in complete loss of flow to the
distal LAD and D3. The patient was experiencing severe chest pain and ST elevations on the monitor. With urgency, a 3.0x30 mm [place] TAWANDA was delivered and deployed. Angiography demonstrated orthodox of TIMI3 flow to the LAD and D3. The
patient's chest pain and ST elevations resolved. IVUS was performed and demonstrated a 3.0 mm distal reference vessel diameter and 3.5 mm proximal reference diameter. Post-dilation was performed with a 3.0 mm NC balloon at the distal edge followed a
3.5 mm NC balloon to 16 naomi in the remainder of the stent. Angiography demonstrated excellent stent sizing and apposition but mild haziness at the distal stent edge. This was interrogated with IVUS which demonstrated appropriate distal stent edge
sizing in a health vessel segment with no evidence of dissection or plaque. The remainder of the stent was well sized, expanded, and opposed with MLA 6.0 mm2. Thus, the wire and guide were removed and attention turned to the RCA.
PCI with TAWANDA to RCA
A JR4 guide catheter was used to engage the RCA and Runthrough coronary wire placed in the distal RCA. Initial lesion preparation was performed with the 2.0x12 balloon. IVUS demonstrated a 3.5 mm reference vessel diameter so a 3.5x38 mm Ocate
[place] stent was deployed followed by post dilation with the 3.5 mm NC balloon to high pressure sparing the distal stent edge. Final IVUS demonstrated excellent stent sizing, expansion, and apposition with no edge dissection. Final angiographic
result was excellent. The wire and guide were removed and a TR band place.
CONCLUSIONS
1. Coronary angiography as described with severe culprit 99% stenosis of the mid-LAD with TIMI2 flow and non-culprit high grade disease in a large RCA.
2. Normal LV filling pressure and no aortic stenosis.
2. Successful PCI to LAD for acute NH with a 3.0x30 mm [place] TAWANDA post dilated to 3.0 mm distally and 3.5 mm elsewhere.
2. Successful PCI to RCA with a 3.5x38 mm Ocate [place] TAWANDA post-dilated to 3.5 mm throughout.
RECOMMENDATIONS
1. ASA/Plavix for 1 year, then ASA monotherapy
2. Aggressive secondary prevention of coronary artery disease with high intensity statin. Goal LDL<55.
3. GDMT for HFrEF and ICM. Add MRA. Consider SLGT2i/GLP1ra pending affordability.
Copy to: Dr. Elisabeth Jc MD (PCP)
Signed: Janusz Moya MD, PhD
[2025-03-20] MEDS: TYLENOL 650 MG PO (20:50)
[2025-03-20 22:20] LABS: Glucose - Point of Care 196 mg/dl (70-99)
--- NOTE | 2025-03-20 22:32 | PTCARENOTE ---
Received patient at change of shift. SR on the monitor, HR in the 60s. R groin dressing CDI, soft. R wrist band removed as per protocol, dressing CDI. Pt complains of lower chest/upper abdominal pain and requested Tylenol, PRN Tylenol administered
as per JAN. Call chavez within reach.
[2025-03-21 03:05] VITALS: BP 139/60
[2025-03-21 03:58] LABS: Hematocrit 35.8 % (37.0-47.0); Hemoglobin 12.3 g/dL (12.0-16.0); Mean Corp Hgb Conc. 34.4 g/dL (33.0-37.0); Mean Corpuscular Hgb 29.1 pg (27.0-31.0); Mean Corpuscular Volume 84.6 fL (81.0-99.0); Mean Platelet Volume 10.8 fL (7.4-10.4); Platelet Count 150 10^3/uL (130-400); Red Blood Cell Count 4.23 10^6/uL (4.20-5.40); White Blood Cell Count 7.3 10^3/uL (4.8-10.8)
[2025-03-21 04:24] LABS: Blood Urea Nitrogen 13 mg/dl (7-17); Calcium 9.3 mg/dl (8.4-10.2); Carbon Dioxide 25 mmol/L (22-30); Chloride 109 mmol/L (98-107); Estimated Creatinine Clearance 56 ml/min; Glucose 135 mg/dl (70-99); Sodium 141 mmol/L (135-145); eGFR > 60.00
[2025-03-21] MEDS: SYNTHROID 100 MCG PO (06:24)
[2025-03-21 07:18] VITALS: BP 124/59
--- NOTE | 2025-03-21 07:48 | W.PN.HOSP.TC ---
Today's Communication/Plan
-
see plan
Assessment / Plan
Assessment / Plan
This is a 79-year-old female with past medical history of hypertension, insulin-dependent diabetes, hypothyroid, hyperlipidemia presenting to the emergency department with episode of chest pain at home, admitted with NSTEMI.
TTE
CONCLUSIONS
TDS: Echo contrast recommended for future studies.
Normal LV size with moderately reduced systolic function.
LVEF is 35-40% by visual estimation. LAD territory wall motion abnormality.
Stage I diastolic dysfunction suggestive of abnormal relaxation.
Normal right ventricular size and function.
No significant valvular disease.
Estimated pulmonary artery pressure of 36 mmHg assuming a right atrial pressure
of 3 mmHg.
No prior study available for comparison.
NSTEMI
-admitted to IVU
-s/p cardiac cath with PCI x 2
-continue aspirin/Plavix
-replace Pravastatin with Lipitor
-continue Losartan, follow up cardioloogy recommendations for GDMT
New Heart Failure Reduced Ejection Fraction
-LVEF 35-40% on TTE with LAD WMA; no significant valvular disease
-follow up cardiology recs
Type 2 diabetes�patient on Lantus 4 units at home which she took last night. Had a hypoglycemic episode in the ED and required half an amp of dextrose.
-Bedside glucose every 6 hours
-Sliding scale insulin for now
-resume Lantus this evening, will monitor BGL today
Hypothyroid
-Continue levothyroxine 100 mcg
Essential HTN
DVT prophylaxis� SCD
CODE STATUS�full code
Anticipated Discharge: 24 - 48 hours
Subjective/Interval History
-
Date of Service: March 21, 2025
some mild chest discomfort post cath, not significant compared to presentation
no nausea/vomiting
she is hungry and wants to eat
Objective Data
-
Labs:
Laboratory Results
03/21/25
03:14
WBC 7.3
Hgb 12.3
Hct 35.8 L
Plt Count 150
Sodium 141
Potassium 4.0
Chloride 109 H
Carbon Dioxide 25
BUN 13
Creatinine 0.7
Glucose 135 H
Calcium 9.3
Vital Signs:
Vital Signs
Temp Pulse Resp BP Pulse Ox
98.1 F 63 20 124/59 97
03/21/25 07:17 03/21/25 07:30 03/21/25 07:17 03/21/25 07:18 03/21/25 07:17
I&O
03/20/25 03/21/25 03/22/25
06:59 06:59 06:59
Intake Total 28.5 / 28.5 493.5 / 493.5
Output Total 725 / 725
Balance 28.5 / 28.5 -231.5 / -231.5
Review of Systems
-
History Source: Patient
All other systems: Reviewed and negative
Physical Exam
-
General: No Apparent Distress
HEENT: PERRLA
Respiratory: Clear to Auscultation; Negative Wheezes
Cardiac: Regular Rhythm and S1/S2
GI: Soft and Nontender
Musculoskeletal: No Edema
Skin: Warm and Dry; Negative Rash
Neuro: AO x 3
Psych: Calm
Data Reviewed
-
Diagnostic Radiology: Report Reviewed by me
Labs: Labs Reviewed by me
[2025-03-21 08:26] LABS: Glucose - Point of Care 161 mg/dl (70-99)
--- NOTE | 2025-03-21 09:00 | PTCARENOTE ---
Assumed care of pt from prev nsg shift; Pt AAOx3 w/no SOB. Pt c/o 'mild 3-4/10' chest pressure. Improved from yesterday, but 'still there'. Pt w/VSS w/HR in the 70's & BP 124/59. Pt is SB/SR on telemetry monitoring. Pt w/R radial access site & R
groin site both w/dressings C/D/I w/no signs or symptoms of bleeding or hematoma. Pt assisted OOB to BR & then to CH & call chavez within reach. Daughter at bedside. Plan of care ongoing.
[2025-03-21] MEDS: PLAVIX 75 MG PO (09:51)
[2025-03-21] MEDS: TOPROL XL 25 MG PO (09:51)
[2025-03-21] MEDS: COZAAR 50 MG PO (09:51)
[2025-03-21] MEDS: NOVOLOG FLEXPEN-LOW RESISTANCE SC (09:51)
[2025-03-21] MEDS: LOW STRENGTH ASPIRIN 81 MG PO (09:51)
--- NOTE | 2025-03-21 10:57 | W.PN.CD ---
Today's Communication / Plan
-
Start dapagliflozin 10 mg daily.
She would benefit from GLP-1 agonist.
Repeat echocardiogram in 90 days.
Discharge planning (tomorrow).
Impression / Plan
-
Impression/Plan: 79 y/o female with IDDM, HTN, HLD admitted with NSTEMI.
#NSTEMI
-Acute, threat to life.
-Troponin peaked at 0.797.
-S/P PCI to culprit 99% mLAD lesion with MARIA T II flow (Medtronic [place] 3.0 x 30 TAWANDA, post dilated with 3.0 NCB distally, 3.5 NCB prox/mid).
-S/P PCI to non-culprit 95% mRCA lesion ([employer]tronic [place] 3.5 x 38 TAWANDA, post dilated with a 3.5 NCB).
-DAPT with aspirin and clopidogrel for 12 months, followed by aspirin indefinitely.
-Aggressive secondary prevention with high dose, high potency statin.
-Echocardiogram shows LVEF = 35-40% with LAD WMA.
#ICMO
-Acute.
-Hopefully will resolve with treatment of LAD lesion.
-GDMT with metoprolol, losartan.
-Start dapagliflozin 10 mg daily. Case management consult.
-Repeat echocardiogram in 90 days.
#HTN
-Chronic, controlled.
-Continue losartan and metoprolol.
#HLD
-Chronic.
-Total cholesterol = 162, LDL = 107, HDL = 41, Triglycerides = 71.
-D/C pravastatin.
-Continue atorvastatin 40 mg daily.
-Goal LDL < 55.
#IDDM2
-Chronic, complicated by neuropathy.
-Insulin per primary service.
-She would benefit from GLP-1 agonists at discharge.
#Dispo
-IVU status.
-Full code.
-Discharge planning (tomorrow).
Subjective/Interval History:
PCI of LAD and RCA yesterday.
Started on GDMT for ICMO.
Feels well.
DATA:
Cardiac Catheterization/PCI, 03/20/2025:
CONCLUSIONS
1. Coronary angiography as described with severe culprit 99% stenosis of the mid-LAD with TIMI2 flow and non-culprit high grade disease in a large RCA.
2. Normal LV filling pressure and no aortic stenosis.
2. Successful PCI to LAD for acute DC with a 3.0x30 mm Casey Eleanor TAWANDA post dilated to 3.0 mm distally and 3.5 mm elsewhere.
2. Successful PCI to RCA with a 3.5x38 mm [place] TAWANDA post-dilated to 3.5 mm throughout.
Transthoracic Echocardiogram, 03/20/2025:
CONCLUSIONS
TDS: Echo contrast recommended for future studies.
Normal LV size with moderately reduced systolic function.
LVEF is 35-40% by visual estimation. LAD territory wall motion abnormality.
Stage I diastolic dysfunction suggestive of abnormal relaxation.
Normal right ventricular size and function.
No significant valvular disease.
Estimated pulmonary artery pressure of 36 mmHg assuming a right atrial pressure
of 3 mmHg.
No prior study available for comparison.
Physical Exam
Vital Signs/Labs
Vital Signs
Temp Pulse Resp BP Pulse Ox
36.7 C 63 20 124/59 97
03/21/25 07:17 03/21/25 07:30 03/21/25 07:17 03/21/25 07:18 03/21/25 07:17
03/19/25 03/20/25 03/21/25
11:59 11:59 11:59
Actual Weight 75.8 kg
03/21/25 03:14
03/21/25 03:14
APTT Cancelled 03/20/25 15:30
Triglycerides 71 mg/dl (10-149) 03/20/25 06:11
LDL Cholesterol, Calc 107 mg/dl 03/20/25 06:11
VLDL Cholesterol, Calc 14 mg/dl (0-30) 03/20/25 06:11
HDL Cholesterol 41 mg/dl 03/20/25 06:11
03/20/25
06:11
Qnf-L-Fggvfjxjmqv Pept 697
LAB Results
03/19/25 03/19/25 03/20/25
20:51 23:18 06:11
Troponin I 0.049 H* 0.487 H* D 0.797 H* D
03/20/25 03/20/25 03/21/25
12:27 18:00 09:00
Troponin I 0.367 H* D Cancelled Cancelled
03/21/25
15:00
Troponin I Cancelled
Physical Exam
Constitutional: No acute distress and Comfortable
EENT: Anicteric and Moist mucous membranes
Cardiovascular: Rhythm & rate is regular, Pedal edema is absent, JVD pressure is normal, S1S2 is normal and Murmur/rub/gallop absent
Respiratory: Respiratory effort normal, Lungs clear to auscul., Wheeze Absent, Crackles Absent and Rhonchi Absent
GI: Soft, Distention absent, Flat, Non tender and Normal bowel sounds
Neuro/Psych: AO x 3
Other: Cath Site (Right radial/femoral access sites are C/D/I.)
Data Reviewed
-
Date of Service: March 21, 2025
Medical Decision Making: Reviewed Test Results, Independent Historian Assessment and Test Interpretation
EKG: Tracing Personally Visualized and interpreted and Report Reviewed by me
Echo: Tracing Personally Visualized and interpreted and Report Reviewed by me
X-Ray/CT/US/MRI/NUC/PET: Image Personally Visualized and interpreted and Report Reviewed by me
Medical Tests (PFT, Pathology etc): Image Personally Visualized and interpreted and Report Reviewed by me
Labs: Labs Reviewed by me
Old Records: Reviewed
[2025-03-21 11:24] VITALS: BP 134/66
[2025-03-21] MEDS: TYLENOL 650 MG PO ×2 (11:33→22:41)
[2025-03-21 11:56] LABS: ACT-LR - POC > 397 Seconds (116-155)
[2025-03-21 12:49] LABS: Glucose - Point of Care 251 mg/dl (70-99)
[2025-03-21] MEDS: NOVOLOG FLEXPEN-LOW RESISTANCE 3 UNITS SC ×2 (12:58→16:57)
--- NOTE | 2025-03-21 14:03 | CM ---
CM following for DC planning needs.
Met w/ patient at bedside. Dtr., who is visiting from [place] was also present.
Reviewed initial assessment. Pt. resides w/ her son in a private, 1 level condo located on the 2nd level of a building/ accessible via elevator.
Son is only there part of the time- he has a fiancee who lives elsewhere that he stays with on occasion. Pt. is ambulatory with use of a RW. Lately, she has been weaker per her and dtr. report.
Dtr. visiting but can stay for a longer period of time, if needed.
Would benefit from PT-OT evaluations to ascertain functional status and poss. DC needs. TT to MD to notify.
DC plan to be determined based on functional status.
CM to follow.
--- NOTE | 2025-03-21 14:21 | CM ---
Priced the following medications thru patient's RX plan/ [phone] in anticipation of an addition of SGLT2
Jardiance- $151.50/ 30 d supply
Farxiga- $ 144.40/ 30 d supply
[2025-03-21 14:56] VITALS: BP 112/78
[2025-03-21 16:39] LABS: Glucose - Point of Care 242 mg/dl (70-99)
[2025-03-21] MEDS: LIPITOR 40 MG PO (18:26)
[2025-03-21 18:40] VITALS: BP 107/54
[2025-03-21 22:12] VITALS: BP 153/87
[2025-03-21 22:15] LABS: Glucose - Point of Care 192 mg/dl (70-99)
[2025-03-22] VITALS (42 sets, daily range): BP systolic 91–151; BP diastolic 42–114; PULSE 66–80; O2SAT 98
--- NOTE | 2025-03-22 01:03 | PTCARENOTE ---
Assumed care of the pt @ 1900. Pt is AAOx3 forgetful @ times. SR on the monitor VSS daughter at bedside. Call chavez within reach. Pt c/o rt hip pain Tylenol given.
[2025-03-22] MEDS: MAALOX 30 ML PO (04:05)
[2025-03-22] MEDS: TYLENOL 650 MG PO (04:05)
[2025-03-22] MEDS: SYNTHROID 100 MCG PO (05:47)
--- NOTE | 2025-03-22 07:25 | W.PN.CD ---
Today's Communication / Plan
-
start dapagliflozin pending cost
discharge with cardiology follow up
Impression / Plan
-
Impression/Plan: 79 y/o female with IDDM, HTN, HLD admitted with NSTEMI s/p PCI to LAD and RCA 03/20/25.
#NSTEMI
-Acute, threat to life.
-Troponin peaked at 0.797.
-S/P PCI to culprit 99% mLAD lesion with MARIA T II flow (Medtronic Casey [place] 3.0 x 30 TAWANDA, post dilated with 3.0 NCB distally, 3.5 NCB prox/mid).
-S/P PCI to non-culprit 95% mRCA lesion (Medtronic [place] 3.5 x 38 TAWANDA, post dilated with a 3.5 NCB).
-DAPT with aspirin and clopidogrel for 12 months, followed by aspirin indefinitely.
-Aggressive secondary prevention with high dose, high potency statin.
-Echocardiogram shows LVEF = 35-40% with LAD WMA.
#ICMO
-Acute.
-Hopefully will resolve with treatment of LAD lesion.
-GDMT with metoprolol, losartan.
-Start dapagliflozin 10 mg daily. Case management consult.
-consider addition of aldactone as outpatient
-Repeat echocardiogram in 90 days.
#HTN
-Chronic, controlled.
-Continue losartan and metoprolol.
#HLD
-Chronic.
-Total cholesterol = 162, LDL = 107, HDL = 41, Triglycerides = 71.
-D/C pravastatin.
-Continue atorvastatin 40 mg daily.
-Goal LDL < 55.
#IDDM2
-Chronic, complicated by neuropathy.
-Insulin per primary service.
-She would benefit from GLP-1 agonists at discharge.
Subjective/Interval History:
Feels well.
DATA:
Cardiac Catheterization/PCI, 03/20/2025:
CONCLUSIONS
1. Coronary angiography as described with severe culprit 99% stenosis of the mid-LAD with TIMI2 flow and non-culprit high grade disease in a large RCA.
2. Normal LV filling pressure and no aortic stenosis.
2. Successful PCI to LAD for acute CT with a 3.0x30 mm [place] TAWANDA post dilated to 3.0 mm distally and 3.5 mm elsewhere.
2. Successful PCI to RCA with a 3.5x38 mm [place] TAWANDA post-dilated to 3.5 mm throughout.
Transthoracic Echocardiogram, 03/20/2025:
CONCLUSIONS
TDS: Echo contrast recommended for future studies.
Normal LV size with moderately reduced systolic function.
LVEF is 35-40% by visual estimation. LAD territory wall motion abnormality.
Stage I diastolic dysfunction suggestive of abnormal relaxation.
Normal right ventricular size and function.
No significant valvular disease.
Estimated pulmonary artery pressure of 36 mmHg assuming a right atrial pressure
of 3 mmHg.
No prior study available for comparison.
Physical Exam
Vital Signs/Labs
Vital Signs
Temp Pulse Resp BP Pulse Ox
36.8 C 75 20 126/55 98
03/22/25 07:10 03/22/25 03:18 03/22/25 07:10 03/22/25 03:18 03/22/25 07:10
03/21/25 03:14
03/21/25 03:14
APTT Cancelled 03/20/25 15:30
Triglycerides 71 mg/dl (10-149) 03/20/25 06:11
LDL Cholesterol, Calc 107 mg/dl 03/20/25 06:11
VLDL Cholesterol, Calc 14 mg/dl (0-30) 03/20/25 06:11
HDL Cholesterol 41 mg/dl 03/20/25 06:11
03/20/25
06:11
Hqn-G-Ydbohxwdyef Pept 697
LAB Results
03/19/25 03/19/25 03/20/25
20:51 23:18 06:11
Troponin I 0.049 H* 0.487 H* D 0.797 H* D
03/20/25 03/20/25 03/21/25
12:27 18:00 09:00
Troponin I 0.367 H* D Cancelled Cancelled
03/21/25
15:00
Troponin I Cancelled
Physical Exam
Constitutional: No acute distress
Cardiovascular: Rhythm & rate is regular
Respiratory: Respiratory effort normal
Neuro/Psych: AO x 3
Other: Cath Site (cdi)
Data Reviewed
-
Date of Service: March 22, 2025
Medical Decision Making: Reviewed Test Results
EKG: Tracing Personally Visualized and interpreted
Echo: Tracing Personally Visualized and interpreted
Labs: Labs Reviewed by me
--- NOTE | 2025-03-22 08:04 | W.PN.HOSP.TC ---
Today's Communication/Plan
-
DC today post PT Eval and Farxiga pricing
Assessment / Plan
Assessment / Plan
This is a 79-year-old female with past medical history of hypertension, insulin-dependent diabetes, hypothyroid, hyperlipidemia presenting to the emergency department with episode of chest pain at home, admitted with NSTEMI.
TTE
CONCLUSIONS
TDS: Echo contrast recommended for future studies.
Normal LV size with moderately reduced systolic function.
LVEF is 35-40% by visual estimation. LAD territory wall motion abnormality.
Stage I diastolic dysfunction suggestive of abnormal relaxation.
Normal right ventricular size and function.
No significant valvular disease.
Estimated pulmonary artery pressure of 36 mmHg assuming a right atrial pressure
of 3 mmHg.
No prior study available for comparison.
NSTEMI
-admitted to IVU
-s/p cardiac cath with PCI x 2
-continue aspirin/Plavix
-replace Pravastatin with Lipitor
-continue Losartan
-new start Metop XL 25mg PO QD
-F/U CM pricing for Farxiga
New Heart Failure Reduced Ejection Fraction
-LVEF 35-40% on TTE with LAD WMA; no significant valvular disease
-patient euvolemic on exam
-metop XL, Losartan, Farxiga as above
Type 2 diabetes�patient on Lantus 4 units at home which she took last night. Had a hypoglycemic episode in the ED and required half an amp of dextrose.
-ISS, on home lantus
A1c 7.1 - continue home regimen on discharge
Hypothyroid
-Continue levothyroxine 100 mcg
Essential HTN
DVT prophylaxis� SCD
CODE STATUS�full code
Anticipated Discharge: Today
Subjective/Interval History
-
Date of Service: March 22, 2025
feeling well
no ear pain this morning
very mild chest discomfort, not anything like compared to presentation
Objective Data
-
Vital Signs:
Vital Signs
Temp Pulse Resp BP Pulse Ox
98.3 F 67 20 148/57 97
03/22/25 07:10 03/22/25 07:30 03/22/25 07:10 03/22/25 07:10 03/22/25 07:10
I&O
03/21/25 03/22/25 03/23/25
06:59 06:59 06:59
Intake Total 493.5 / 493.5 960 / 960
Output Total 725 / 725
Balance -231.5 / -231.5 960 / 960
Review of Systems
-
History Source: Patient
All other systems: Reviewed and negative
Physical Exam
-
General: No Apparent Distress
HEENT: PERRLA
Respiratory: Clear to Auscultation; Negative Wheezes
Cardiac: Regular Rhythm and S1/S2
GI: Soft and Nontender
Musculoskeletal: No Edema
Skin: Warm and Dry; Negative Rash
Neuro: AO x 3
Psych: Calm
Data Reviewed
-
Diagnostic Radiology: Report Reviewed by me
Labs: Labs Reviewed by me
[2025-03-22 08:44] LABS: Glucose - Point of Care 182 mg/dl (70-99)
[2025-03-22] MEDS: COZAAR 50 MG PO (08:58)
[2025-03-22] MEDS: PLAVIX 75 MG PO (08:59)
[2025-03-22] MEDS: TOPROL XL 25 MG PO (08:59)
[2025-03-22] MEDS: LOW STRENGTH ASPIRIN 81 MG PO (08:59)
[2025-03-22] MEDS: NOVOLOG FLEXPEN-LOW RESISTANCE 1 UNITS SC (09:03)
--- NOTE | 2025-03-22 11:15 | PTCARENOTE ---
Rec'd pt this shift awake and alert in bed. Pt NSR on monitor. RA. Pts daughter at bedside. Pt assisted OOB up in chair for breakfast. Pt denies pain, denies sob. PT/OT in to see patient. See worklist for VS/I and O and assessments.
--- NOTE | 2025-03-22 11:18 | CM ---
Addendum entered by ZAYDA Ahn 03/22/25 11:41:
[facility] able to accept.
Original Note:
CM following for DC planning needs.
CM met w/ patient and dtr. at bedside following PT evaluation. Recommendation is for home health. We discussed home health, offered VN-both in agreement. Referral made to [facility], awaiting response.
We discussed cost of Farxiga and Jardiance, priced yesterday. They are asking for input on which is better- notified MD. Will provide free 30 d supply.
Dtr. requesting info. on [facility] or emergency response system. Will provide listing.
DC plan anticipated for home w/ [facility], if accepted.
--- NOTE | 2025-03-22 11:58 | W.DS.TRANS ---
DC Summary - Stud Driver
-
Discharge Instructions:
Discharge Diagnosis/Procedures NSTEMI, s/p angioplasty and stent x1 to Left
Anterior Descending artery and x1 to Right
Coronary artery
Diet Low Cholesterol
Activity As tolerated
Driving Restrictions No driving for 24 hours
Bathing Restrictions None
Other Services Cardiac Rehab
Instructions:
Stand-Alone Forms: DC Instructions- Cath/EP Lab
Changes to Home Medications: Yes
Discharge Medications:
DC Medications w/original date entered in [employer]
levothyroxine 100 mcg tablet (Synthroid) 100 mcg PO DAILY Thyroid 03/20/25
insulin glargine 100 unit/mL subcutaneous cartridge 14 unit SC QPM 03/21/25
aspirin 81 mg chewable tablet 81 mg PO DAILY #90 tabs 03/22/25
atorvastatin 40 mg tablet 40 mg PO QPM #30 tabs 03/22/25
clopidogrel 75 mg tablet 75 mg PO DAILY #90 tabs 03/22/25
dapagliflozin propanediol 10 mg tablet (Farxiga) 10 mg PO DAILY #30 tabs 03/22/25
losartan 100 mg tablet 50 mg (1/2 x 100 mg) PO DAILY Blood Pressure #0 tabs 03/22/25
metoprolol succinate 25 mg tablet,extended release 24 hr 25 mg PO DAILY #30 tabs 03/22/25
Home Medication Changes
Take Aspirin and Plavix together x 1 year to protect cardiac stents, then Aspirin indefinitely
Stop Pravastatin, this is replaced with Atorvastatin for cholesterol
You are also prescribed:
Metoprolol 25mg XL daily for heart protection
Farxiga 10mg daily to help keep fluid off
It is unclear if your home Losartan dose is 50 or 100mg. Take 50mg daily and measure your blood pressure 90 minutes post taking your morning medications. Report results to your PCP who will direct you on further adjustments.
Pending Results: No
[2025-03-22] MEDS: NITROSTAT (SUBLINGUAL) 0.4 MG SL ×2 (12:24→12:38)
--- NOTE | 2025-03-22 12:37 | W.PN.UPDATE ---
Update Note
Progress Note Update
I was alerted by nursing that patient having chest discomfort. EKG is stable from yesterday. She looks well at the time of my assessment. Discussed with Dr. Arango's who thinks patient needs to go back to lab. He discussed with Dr. Mahoney who will
assess patient. Nitro given and CP is improving. Heparin drip to be initiated per Dr. Moya- it has been ordered by me and discussed with nursing. I updated Dr. Holt, the primary hospitalist for patient. Trop and CKMB ordered per Dr. Mahoney.
[2025-03-22] MEDS: HEPARIN 25000 UNITS/250 ML IV (12:41)
[2025-03-22] MEDS: HEPARIN 4000 UNITS IV (12:47)
--- NOTE | 2025-03-22 12:50 | PTCARENOTE ---
Pt c/o chest pain 08/17. Stat EKG done. VSS.Dr. Moya and YVONNE Park notified. SL nitro given X 3. 2l n/c oxygen applied. Heparin 4000 units IV given at this time. Heparin drip begun at 950 units/hr. Dr. Hernandez at bedside at this time.
[2025-03-22 13:26] LABS: Total CK 56 U/L (30-135)
[2025-03-22 13:27] LABS: Troponin I 0.864 ng/ml
[2025-03-22 13:34] LABS: Glucose - Point of Care 228 mg/dl (70-99)
--- NOTE | 2025-03-22 14:22 | PTCARENOTE ---
EKG's done q 15min X 45min. Dr. Mahoney in to see patient. Pt chest pain remains 6/10 across lower abdomen and chest. Report given to laboratory assistant. Pt sent to laboratory assistant at this time.
[2025-03-22] MEDS: NOVOLOG FLEXPEN-LOW RESISTANCE SC (15:30)
--- NOTE | 2025-03-22 15:53 | ITS.CL.ANGIO ---
Flute Teacher - Angioplasty
Angioplasty
Procedure Report:
CARDIAC CATHETERIZATION REPORT
Date of Procedure: 03/22/2025
Referring: ZACK Sequeira
INDICATION: Recurrent chest pain after recent PCI, persistent anterolateral T wave inversions.
PROCEDURE:
1. Left heart catheterization.
2. Coronary angiography
3. PCI of the proximal circumflex.
4. PCI of the ostial and proximal ramus intermedius.
5. Intravascular ultrasound.
A total of 73 minutes of procedural/moderate sedation was utilized. An independent medical billing specialist was present to assist with and help manage the patient's level of consciousness and physiologic status.
ACCESS:
1. 6 [place] left common femoral artery using a modified Seldinger with a micropuncture under ultrasound guidance.
CATHETERS:
1. 5 [place] JR4.
2. 5 [place] JL 4.
3. 6 [place] EBU 4.0 guiding catheter.
HEMODYNAMIC DATA
Weight (kg): 75.7
AO (s/d/x, mmHg): 113/48/71
LV (s/x mmHg): 116/15
LEFT VENTRICULOGRAPHY: Not performed.
CORONARY ANGIOGRAPHY
Dominance: Right.
Left Main: Normal size, trifurcating vessel. There is no coronary artery disease.
LAD: Normal size vessel giving rise to 2 diagonals. There are 20% lesions in the proximal vessel. A patent stent is visible in the mid LAD, spanning the origin of D2. There is a 50% lesion in the distal LAD.
Ramus: There is a 70% lesion in the ostium of the ramus followed by an 90% lesion in the proximal margin of the ramus.
Circumflex: Relatively small size, nondominant vessel that is essentially a single small marginal. There is a 90% lesion in the proximal vessel.
RCA: Large size, dominant vessel. Patent stents are observed in the proximal/mid vessel. There are 30-40% lesions in the distal vessel as it approaches the RPDA.
INTERVENTION(S)
1. Successful IVUS guided PCI of the 90% proximal circumflex lesion (Medtronic [place] 2.0 x 22 TAWANDA, postdilated with a 2.0 NC balloon throughout and a 2.25 NC balloon in the proximal margin) with reduction in stenosis to 0%, maintaining
MARIA T-3 flow.
2. Successful IVUS guided PCI of the 70% ostial and 90% proximal ramus intermedius lesion (Medtronic [place] 2.0 x 26 TAWANDA, postdilated with a 2.25 NC balloon throughout) with reduction in stenosis to 0%, maintaining MARIA T-3 flow.
3. Successful IVUS of the left anterior descending artery and left main coronary artery.
Narrative:
The decision was made to proceed with percutaneous coronary intervention. The diagnostic catheter was removed over a wire and a 6Fr EBU 4.0 guiding catheter was advanced to the aortic root and seated in the left main coronary artery. Additional
heparin was given and a Power Turn Flex wire was advanced into the ramus intermedius. The 90% proximal and 70% ostial lesions were predilated with a 2.0 x 12 semi-compliant balloon to 12 naomi. The semi-compliant balloon was removed and a Medtronic
[place] 2.0 x 26 drug-eluting stent was advanced. There was some difficulty positioning the stent as the stent was bouncing in and out of the artery without consistent positioning. Because of the critical nature of the stent in the ostium of
the ramus and the need to complete revascularization of the circumflex, we elected to remove this stent and proceed with circumflex intervention first in case access to the circumflex was limited after PCI of the ramus.
A BMW wire was advanced into the distal circumflex. The 90% proximal circumflex lesion was predilated with a 2.0 x 12 semi-compliant balloon to 12 naomi. The semi-compliant balloon was removed and a 2.0 x 22 drug-eluting stent was advanced. The stent
was deployed at 12 atmospheres. The stent balloon was removed. A 2.0 x 8 noncompliant balloon was advanced into the stent and the stent was postdilated to 14 atmospheres. The noncompliant balloon was withdrawn and a 2.25 x 15 noncompliant balloon
was advanced. The proximal stent margin was dilated to 14 naomi. Angiography was performed in orthogonal views, confirming good stent expansion and an excellent angiographic result.
We then turned our attention back to the ramus intermedius. The BMW wire was withdrawn from the circumflex and redirected into the LAD. The 2.0 x 26 mm drug-eluting stent was readvanced into the ramus intermedius. A 3.0 x 18 semicompliant balloon
was advanced into the LAD over the BMW wire then pulled back into the left main coronary artery, spanning the origin of the ramus. The 3.0 x 18 balloon was inflated to 4 naomi to avoid damage to the LAD and left main. The 2.0 x 26 drug-eluting stent
was pulled back in an attempt to perform a backstop technique. Unfortunately, there was too much room in the left main and the stent was able to slip by the inflated balloon. The balloon was deflated and the stent was readvanced into the artery.
The balloon was pulled back into the left main artery but positioned near the origin of the ramus and the left main. The presence of the balloon significantly stabilized the movement of the stent and we were able to position the stent in the ostium
of the ramus intermedius much more confidently. When we were satisfied with our position, the 2.0 x 26 TAWANDA was inflated to 12 naomi. The 3.0 x 18 semicompliant balloon was withdrawn. The 2.0 x 26 balloon was deflated and withdrawn.
The decision was made to perform intracoronary imaging. An IVUS catheter was advanced over the power turn flex wire through the guiding catheter and into the ostium of the left main coronary artery. Ring down was performed once the imaging crystal
was no longer inside of the guiding catheter. The IVUS catheter was advanced into the ramus intermedius, beyond the stented segment. Intravascular ultrasound was performed in a retrograde fashion using a slow pullback. Intracoronary imaging
demonstrated good stent apposition with modest underexpansion in the midportion and ostium of the vessel. IVUS was able to confirm that the ramus intermedius stent protruded into the left main coronary artery by 1 cell.
The IVUS catheter was withdrawn from the ramus intermedius and directed into the LAD over the BMW wire. IVUS was performed throughout the entire LAD and left main coronary artery to evaluate
The prior stent placement as well as for damage to the LAD and left main given the attempt at backstop procedure. The IVUS demonstrated excellent stent apposition and expansion with no evidence of disruption or dissection in the proximal LAD or
left main.
The IVUS catheter was withdrawn. The 2.25 x 15 noncompliant balloon was advanced over the power turn flex wire and into the ramus intermedius. The entire stent length was postdilated to 14 naomi. The noncompliant balloon was withdrawn.
Angiography was performed in orthogonal views, confirming good stent expansion and an excellent angiographic result. In spite of this angiographic success, the patient continued to complain of 8/10 chest discomfort which she described as
'unbearable'. Angiography was performed again, once again confirming MARIA T-3 flow in all vessels with resolution of the potential resting chest pain lesions. The patient was given a dose of sublingual nitroglycerin. The coronary wire was withdrawn
and the guide was disengaged from the artery. The catheter was removed over a standard J- wire.
Closure Device: 6 [place] Angio-Seal.
Radiation (mGy): 1302.91
DAP (cm2.Gy): 64.5995
Fluoroscopy time (minutes): 15.4
CONCLUSIONS
1. Right dominant circulation with a patent stent in the proximal/mid RCA, 30-40% lesions in the distal RCA, 20% lesions in the proximal LAD, a patent stent in the mid LAD spanning the origin of D2, a 50% lesion in the distal LAD, and 90% lesion in
the small proximal circumflex status post successful IVUS guided PCI (Medtronic [place] 2.0 x 22 TAWANDA, postdilated with a 2.0 NC balloon throughout and a 2.25 NC balloon in the proximal margin) and tandem 70% and 90% lesions in the ostium and
proximal margin of the ramus, status post successful IVUS guided PCI (Medtronic [place] 2.0 x 26 TAWANDA, postdilated with a 2.25 NC balloon throughout) with reduction in both circumflex and ramus stenoses to 0%, maintaining MARIA T-3 flow.
2. Mildly elevated filling pressures (LVEDP = 15 mmHg at 75.7 kg).
3. Persistent chest discomfort and spite of complete revascularization.
RECOMMENDATIONS:
1. Expectant management after cardiac catheterization via left common femoral approach.
2. Limited weight bearing for one week.
3. Maintain dual antiplatelet therapy with aspirin and clopidogrel for at least 12 months, followed by aspirin indefinitely.
4. Repeat limited echocardiogram to evaluate for pericardial effusion (possible reactive pericarditis?).
5. Continue aggressive secondary prevention with high-dose, high potency statin. Goal LDL <55.
6. OMT/GDMT as hemodynamics will tolerate.
7. Referral to cardiac rehab.
Copy to: Janusz Moya M.D., PhD, ZACK Sequeira, Elisabeth Jc M.D.
Vinny Mahoney, , FACC, FACP
[2025-03-22 17:16] LABS: Glucose - Point of Care 201 mg/dl (70-99)
[2025-03-22] MEDS: LIPITOR 40 MG PO (18:44)
[2025-03-22] MEDS: NOVOLOG FLEXPEN-LOW RESISTANCE 2 UNITS SC (18:58)
--- NOTE | 2025-03-22 19:03 | PTCARENOTE ---
Addendum entered by Jaqueline Block RN 03/22/25 19:09:
Patient forgetful at baseline.
Original Note:
~1500: Handoff report received from Ashley Jorgensen. patient currently in CCL at this time.
~1600: report received from [facility]. Pt back in room with [facility] staff. Daughter at bedside. Pt Aox4, NSR on tele, SBP 100s-110s, RA. Pt c/o CP 6/10 at soon as out, however gradually getting better; about 15 mins later patient stated it was 5/10. EKG
obtained per order. Post cath fluids infusing. Pt voided on bedpan. education provided to patient and daughter, patient is to be bedrest until 184. L groin site soft and dressing CDI. All needs met at this time, call chavez within reach.
~6932-3581: VSS at this time. pt states no CP at this time. All needs met, call chavez within reach.
~4645-1072: pt in stable condition at this time. Daughter at bedside. Handoff report given to monse JORGENSEN.
[2025-03-22 19:27] LABS: Troponin I 0.761 ng/ml
--- NOTE | 2025-03-22 20:49 | PTCARENOTE ---
Pt rec'd at change of shift awake,alert forgetful. Daughter freq prompting pt on timing something occurred. Left femoral site with DDI,no swelling or bleeding noted + pulses. IVF completed. Pt pain free at present. Ambulated with assist to bathroom
with walker. stress incont noted. Daughter requested copies of catheterization and last troponin level that is going down.
[2025-03-22 23:02] LABS: Glucose - Point of Care 216 mg/dl (70-99)
[2025-03-23] VITALS (7 sets, daily range): BP systolic 119–135; BP diastolic 45–73; BMI 32.5
[2025-03-23 04:33] LABS: Hematocrit 35.8 % (37.0-47.0); Hemoglobin 12.4 g/dL (12.0-16.0); Mean Corp Hgb Conc. 34.6 g/dL (33.0-37.0); Mean Corpuscular Volume 83.6 fL (81.0-99.0); Mean Platelet Volume 11.2 fL (7.4-10.4); Platelet Count 148 10^3/uL (130-400); Red Blood Cell Count 4.28 10^6/uL (4.20-5.40); Red Cell Dist. Width 13.7 % (11.5-14.5); White Blood Cell Count 7.2 10^3/uL (4.8-10.8)
[2025-03-23 04:46] LABS: Blood Urea Nitrogen 15 mg/dl (7-17); Calcium 9.6 mg/dl (8.4-10.2); Carbon Dioxide 25 mmol/L (22-30); Chloride 108 mmol/L (98-107); Estimated Creatinine Clearance 64 ml/min; Glucose 225 mg/dl (70-99); Potassium 3.9 mmol/L (3.5-5.1); Sodium 140 mmol/L (135-145); eGFR > 60.00
--- NOTE | 2025-03-23 04:59 | PTCARENOTE ---
Daughter remains at bedside. Left groin with small ooze noted earlier on shift , no change noted from previous. bed alarm remains activated. no complaints voiced
--- NOTE | 2025-03-23 07:38 | W.PN.CD ---
Today's Communication / Plan
-
Maintain DAPT.
Echocardiogram.
Ambulate today.
Discharge planning (late today vs. tomorrow).
GLP-1 analog at discharge.
Impression / Plan
-
Impression/Plan: 79 y/o female with IDDM, HTN, HLD admitted with NSTEMI s/p PCI to LAD and RCA 03/20/25.
#NSTEMI
-Acute, threat to life.
-Troponin peaked at 0.797.
-S/P PCI to culprit 99% mLAD lesion with MARIA T II flow (Medtronic [place] 3.0 x 30 TAWANDA, post dilated with 3.0 NCB distally, 3.5 NCB prox/mid) and non-culprit 95% mRCA lesion (Medtronic [place] 3.5 x 38 TAWANDA, post dilated with a 3.5 NCB)
on 03/20/2025.
-Recurrent chest pain compelled relook cath, leading to PCI of 90% pLCx lesion (Medtronic [place] 2.0 x 22 TAWANDA, post dilated with 2.0 NCB throughout, 2.25 x 15 in the proximal margin) and tandem 70%/90% ostial/proximal RI lesions (Medtronic [place] 2.0 x
26 TAWANDA, post dilated with 2.25 NCB) on 03/22/2025.
-Chest pain has improved, but it remains unclear if these lesions were responsible for her discomfort. Repeat echo today to assess for any effusion (reactive pericarditis?).
-DAPT with aspirin and clopidogrel for 12 months, followed by aspirin indefinitely.
-Aggressive secondary prevention with high dose, high potency statin.
-Echocardiogram shows LVEF = 35-40% with LAD WMA.
-Ambulate.
#ICMO
-Acute.
-Hopefully will resolve with treatment of LAD lesion.
-GDMT with metoprolol, losartan.
-Start dapagliflozin 10 mg daily. Case management consult.
-Consider addition of aldactone as outpatient.
-Repeat echocardiogram in 90 days.
#HTN
-Chronic, controlled.
-Continue losartan and metoprolol.
#HLD
-Chronic.
-Total cholesterol = 162, LDL = 107, HDL = 41, Triglycerides = 71.
-D/C pravastatin.
-Continue atorvastatin 40 mg daily.
-Goal LDL < 55.
#IDDM2
-Chronic, complicated by neuropathy.
-Insulin per primary service.
-She would benefit from GLP-1 agonists at discharge.
Subjective/Interval History:
Patient developed recurrent chest pain yesterday with persistent T wave inversions in the anterolateral leads.
Nitro gtt started with minimal pain improvement, no changes in EKG but no ST elevations.
Troponin was initially higher than before the first PCI, but it was unclear if this represented new ischemia or the downslope of the previous troponin elevation.
After an attempt at conservative management, we elected to return to environmental laboratory technician for relook.
Relook showed patent LAD/RCA stents. It re-demonstrated significant disease in a small LCx and showed previously unappreciated RI disease.
The patient underwent PCI of the LCx and RI.
The patient continued to have chest pain on the table, but this dissipated over the course of the next several hours.
DATA:
Cardiac Catheterization/PCI, 03/20/2025:
CONCLUSIONS
1. Coronary angiography as described with severe culprit 99% stenosis of the mid-LAD with TIMI2 flow and non-culprit high grade disease in a large RCA.
2. Normal LV filling pressure and no aortic stenosis.
2. Successful PCI to LAD for acute MO with a 3.0x30 mm [place] TAWANDA post dilated to 3.0 mm distally and 3.5 mm elsewhere.
2. Successful PCI to RCA with a 3.5x38 mm [place] TAWANDA post-dilated to 3.5 mm throughout.
Transthoracic Echocardiogram, 03/20/2025:
CONCLUSIONS
TDS: Echo contrast recommended for future studies.
Normal LV size with moderately reduced systolic function.
LVEF is 35-40% by visual estimation. LAD territory wall motion abnormality.
Stage I diastolic dysfunction suggestive of abnormal relaxation.
Normal right ventricular size and function.
No significant valvular disease.
Estimated pulmonary artery pressure of 36 mmHg assuming a right atrial pressure
of 3 mmHg.
No prior study available for comparison.
Physical Exam
Vital Signs/Labs
Vital Signs
Temp Pulse Resp BP Pulse Ox
36.4 C 69 18 121/45 97
03/23/25 03:43 03/23/25 04:00 03/23/25 03:43 03/23/25 03:45 03/23/25 03:45
03/21/25 03/22/25 03/23/25
11:59 11:59 11:59
Actual Weight 73 kg
03/23/25 04:01
03/23/25 04:01
APTT Cancelled 03/22/25 18:30
Triglycerides 71 mg/dl (10-149) 03/20/25 06:11
LDL Cholesterol, Calc 107 mg/dl 03/20/25 06:11
VLDL Cholesterol, Calc 14 mg/dl (0-30) 03/20/25 06:11
HDL Cholesterol 41 mg/dl 03/20/25 06:11
03/20/25
06:11
Lem-I-Ounmrlpewgd Pept 697
LAB Results
03/20/25 03/20/25 03/21/25
12:27 18:00 09:00
Troponin I 0.367 H* D Cancelled Cancelled
03/21/25 03/22/25 03/22/25
15:00 12:49 18:58
Troponin I Cancelled 0.864 H* 0.761 H*
Physical Exam
Constitutional: No acute distress and Comfortable
EENT: Anicteric and Moist mucous membranes
Cardiovascular: Rhythm & rate is regular, Pedal edema is absent, JVD pressure is normal, S1S2 is normal and Murmur/rub/gallop absent
Respiratory: Respiratory effort normal, Lungs clear to auscul., Wheeze Absent, Crackles Absent and Rhonchi Absent
GI: Soft, Distention absent, Flat, Non tender and Normal bowel sounds
Neuro/Psych: AO x 3
Other: Cath Site (Left femoral access site is C/D/I.)
Data Reviewed
-
Date of Service: March 23, 2025
Medical Decision Making: Reviewed Test Results, Independent Historian Assessment and Test Interpretation
EKG: Tracing Personally Visualized and interpreted and Report Reviewed by me
Echo: Report Reviewed by me
X-Ray/CT/US/MRI/NUC/PET: Image Personally Visualized and interpreted and Report Reviewed by me
Medical Tests (PFT, Pathology etc): Image Personally Visualized and interpreted and Report Reviewed by me
Labs: Labs Reviewed by me
Old Records: Reviewed
[2025-03-23 07:50] LABS: ACT-LR - POC > 397 Seconds (116-155)
[2025-03-23 07:50] LABS: ACT-LR - POC > 397 Seconds (116-155)
[2025-03-23] MEDS: PLAVIX 75 MG PO (07:55)
[2025-03-23] MEDS: COZAAR 50 MG PO (07:56)
[2025-03-23] MEDS: LOW STRENGTH ASPIRIN 81 MG PO (07:56)
[2025-03-23] MEDS: SYNTHROID 100 MCG PO (07:56)
[2025-03-23] MEDS: TOPROL XL 25 MG PO (07:56)
[2025-03-23 08:33] LABS: Glucose - Point of Care 236 mg/dl (70-99)
[2025-03-23] MEDS: NOVOLOG FLEXPEN-LOW RESISTANCE 2 UNITS SC ×2 (09:14→11:57)
[2025-03-23 11:57] LABS: Glucose - Point of Care 246 mg/dl (70-99)
--- NOTE | 2025-03-23 12:25 | CM ---
CM following for DC planning needs.
Met w/ patient + dtr. at bedside.
Pt. reports that she is feeling well after an eventual day yesterday resulting in a return to the dentures lab technician.
We reviewed DC plan for home w/ [facility]. I have provided resources for Emergency Alert necklaces as per dtr. request.
Coupon for [place] in DC folder.
Plan for home w/ [facility].
Will cont. to follow.
--- NOTE | 2025-03-23 12:52 | W.PN.HOSP.TC ---
Today's Communication/Plan
-
Await ECHO
Assessment / Plan
Assessment / Plan
79-year-old with chest pain
Echo-normal LV size with moderately reduced systolic function. EF 35 to 40%. Stage I diastolic dysfunction. Normal RV size and function. PA pressure 36 mmHg.
Denies any pain
CVS: S1-S2 normal
Chest: CTA B/L
Abdomen: Soft, NT / Bowel sounds present
Extremities: No edema
# Ges-DUEMA-fufyodgy peaked at 0.79
Status post Cath with PCI of mid LAD lesion and mid RCA lesion on 03/20/2025
Repeat Cath With PCI of proximal left circumflex lesion and ostial/proximal RI lesion on 03/22/2025
Continue aspirin, clopidogrel for 12 months followed by aspirin indefinitely
Continue statin
Off heparin gtt
Rpt ECHO from today pending
# Ischemic cardiomyopathy-continue metoprolol, losartan, SGLT2 inhibitor. Aldactone to be started as outpatient
# Hypertension-continue losartan and metoprolol
# Hyperlipidemia-continue atorvastatin
# Diabetes with neuropathy-hemoglobin A1c 7.1-Continue SGLT2 inhibitor, Lantus insulin 14 units daily
# Hypothyroidism-continue levothyroxine 100 mcg
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
# DVT prophylaxis-Lovenox
# Full code
D/W RN at bed side
D/W Daughter at bed side
Pt says she had a BM ' the other day' None charted by nursing.
Part of this note was created using voice recognition system. Occasional wrong word or��sound alike� substitutions may have inadvertently occurred due to the inherent limitations of voice recognition software. If noted kindly bring it to my
attention for correction.
Anticipated Discharge: Within 24 hours
Subjective/Interval History
-
Date of Service: March 23, 2025
Objective Data
-
Labs:
Laboratory Results
03/23/25
04:01
WBC 7.2
Hgb 12.4
Hct 35.8 L
Plt Count 148
Sodium 140
Potassium 3.9
Chloride 108 H
Carbon Dioxide 25
BUN 15
Creatinine 0.6
Glucose 225 H
Calcium 9.6
Vital Signs:
Vital Signs
Temp Pulse Resp BP Pulse Ox
97.9 F 70 18 119/62 98
03/23/25 12:06 03/23/25 12:06 03/23/25 12:06 03/23/25 12:06 03/23/25 07:44
I&O
03/22/25 03/23/25 03/24/25
06:59 06:59 06:59
Intake Total 960 / 960 500 / 500
Balance 960 / 960 500 / 500
[2025-03-23] MEDS: SENOKOT 17.2 MG PO ×2 (15:03→22:21)
[2025-03-23] MEDS: MIRALAX 17 GRAMS PO (15:04)
[2025-03-23 17:57] LABS: Glucose - Point of Care 341 mg/dl (70-99)
[2025-03-23] MEDS: NOVOLOG FLEXPEN-LOW RESISTANCE 4 UNITS SC (18:20)
[2025-03-23] MEDS: LOVENOX 40 MG SC (18:22)
[2025-03-23] MEDS: LIPITOR 40 MG PO (18:23)
--- NOTE | 2025-03-23 19:17 | PTCARENOTE ---
~8420-3155: Handoff report received from nightshift RN. Pt Aox4, NSR on tele 70s, SBP 110s-140s, RA. Pt denies pain at this time. L groin site soft, dressing intact with small amount of old drainage present. r groin site and R radial wrist site ALIGNING CHECKER.
daughter at bedside. Patient Ax1 with walker to bathroom and to chair for breakfast. ECHO ordered by Dr. Mahoney, pending results, patient may be discharged per Dr. Mahoney. All needs met at this time, call chavez within reach.
~9197-3317: patient transported to ECHO via stretcher.
~1145: Patient returned to room via stretcher from echo in stable condition. Ax1 with walker to bathroom.
~1348-9358: Pt resting in bed, VSS at this time. Senna and mirilax given. Family visiting. Encrouagement provided for patient to ambulate with assistance.
~1536-4785: patient ambulated with walker with RN from room to entrance of unit and back, tolerated well. Patient OOB to chair after. All needs met at this time, call chavez within reach.
~8660-7028: Patient resting in room with family at bedside. Pt does not complain of pain at this time. Ax1 with walker to bathroom. All needs met, call chavez within reach.
~3009-0444: Patient resting in bed. Insulin given for dinner per order. Education provided on new lovenox medication. VSS at this time. Handoff report given to nightshift RN.
[2025-03-23 22:13] LABS: Glucose - Point of Care 219 mg/dl (70-99)
[2025-03-24] VITALS (7 sets, daily range): BP systolic 106–140; BP diastolic 51–84; BMI 32.4
[2025-03-24] MEDS: NITROSTAT (SUBLINGUAL) 0.4 MG SL (04:27)
[2025-03-24 04:40] LABS: Hematocrit 35.4 % (37.0-47.0); Hemoglobin 12.4 g/dL (12.0-16.0); Mean Corpuscular Hgb 28.9 pg (27.0-31.0); Mean Corpuscular Volume 82.5 fL (81.0-99.0); Mean Platelet Volume 10.8 fL (7.4-10.4); Platelet Count 145 10^3/uL (130-400); Red Blood Cell Count 4.29 10^6/uL (4.20-5.40); Red Cell Dist. Width 13.7 % (11.5-14.5); White Blood Cell Count 6.8 10^3/uL (4.8-10.8)
--- NOTE | 2025-03-24 05:10 | W.PN.UPDATE ---
Update Note
Progress Note Update
-came in @ 4:40 am to evaluate for chest and back pain. Pt says that pain started after she came back from the bathroom with sharp back pain radiating around the chest wall in bra distribution to the sternum, 7-8/10 in intensity. No distress. Pt
says it feels similar to pain few days ago, but not as intense. She says that chest wall has been painful also during Echo done on 03/23. Pt received 1 sl Nitro prior to my arrival and had no relief. ECG is without acute changes. Pain was
reproducible with palpation of lower ribs on the R side. Pt was repositioned in bed and stated that pain was decreasing during our conversation. BP 106/55, nsr 75 bpm, pOx 98% on 2L. Of note, pt has prior back surgery with chronic pain and takes
Motrin or Aleve for that at home. Ms Conte had cath 03/20/25 with stents to LAD and RCA. She then had recurrent CP and went back to cath lab radiological technologist 03/22 for stents to Ramus and Circ. LAD and RCA stents were patent.
-will trend trops- 0.684 this am, which is trending down from 0.76. Gave Ultram for possible musculoskeletal discomfort. Checked back on pt - she is sleeping, appears comfortable.
[2025-03-24] MEDS: ULTRAM 25 MG PO (05:16)
[2025-03-24] MEDS: SYNTHROID 100 MCG PO (05:16)
--- NOTE | 2025-03-24 05:26 | PTCARENOTE ---
After awakening pt c/o 04/17 chest pain-described as sharp which was underneath both breasts and around to her back like a band. Denies dyspnea, radiation to arm or jaw. Med with 1 SL NTG with no change. Placed on O2 2L NC. Examined by cardiac PA.
EKG done. Additional blood work done and sent to lab. Pt med with tramadol 25 mg po. Prior to tramadol pt stated pain was starting to reduce-now 02/15. Will continue to monitor.
[2025-03-24 05:49] LABS: Blood Urea Nitrogen 15 mg/dl (7-17); Calcium 9.7 mg/dl (8.4-10.2); Carbon Dioxide 26 mmol/L (22-30); Chloride 107 mmol/L (98-107); Estimated Creatinine Clearance 55 ml/min; Glucose 210 mg/dl (70-99); Magnesium 1.7 mg/dl (1.6-2.3); Potassium 4.1 mmol/L (3.5-5.1); Sodium 140 mmol/L (135-145); eGFR > 60.00
[2025-03-24 06:06] LABS: Troponin I 0.684 ng/ml
[2025-03-24 08:45] LABS: Glucose - Point of Care 221 mg/dl (70-99)
[2025-03-24] MEDS: MILK OF MAGNESIA 30 ML PO (09:01)
[2025-03-24] MEDS: SENOKOT 17.2 MG PO (09:01)
[2025-03-24] MEDS: MAGNESIUM OXIDE 500 MG PO (09:02)
[2025-03-24] MEDS: COZAAR 50 MG PO (09:02)
[2025-03-24] MEDS: PLAVIX 75 MG PO (09:02)
[2025-03-24] MEDS: MIRALAX 17 GRAMS PO (09:02)
[2025-03-24] MEDS: LOW STRENGTH ASPIRIN 81 MG PO (09:03)
[2025-03-24] MEDS: TOPROL XL 25 MG PO (09:03)
--- NOTE | 2025-03-24 09:27 | W.PN.HOSP.TC ---
Addendum entered and electronically signed by Sam Herrera MD 03/25/25 08:13:
sugars got better and Pt was discharged
Case was discussed with cardioology
More than 30 minutes spent in discharge including
Final examination of the patient
Summarizing hospital stay
Instructions for continuing care to all relevant caregivers
Preparation of discharge records, prescriptions, and referral forms
Total time spent (in minutes): 38 min
Original Note:
Today's Communication/Plan
-
Add PPI
Ambulate
Insulin
Assessment / Plan
Assessment / Plan
79-year-old with chest pain
03/20/20250680-[id number] LV size with moderately reduced systolic function. EF 35 to 40%. Stage I diastolic dysfunction. Normal RV size and function. PA pressure 36 mmHg.
Echo 03/23/2025-mildly reduced LV systolic function. EF 45 to 50%. Mild anterior and anteroapical hypokinesis. Compared to 03/20/2025 EF and wall motion changes have improved.
Had pain under the ribs last night
CVS: S1-S2 normal
Chest: CTA B/L
Abdomen: Soft, NT / Bowel sounds present
Extremities: No edema
# Uoy-AKRVS-tfkqybtm peaked at 0.79
Status post Cath with PCI of mid LAD lesion and mid RCA lesion on 03/20/2025
Repeat Cath With PCI of proximal left circumflex lesion and ostial/proximal RI lesion on 03/22/2025
Continue aspirin, clopidogrel for 12 months followed by aspirin indefinitely
Continue statin
# Epigastric discomfort/pain
Add PPI
Check lipase and LFTs-patient has history of cholecystectomy per CAT scan
Treat constipation
# Ischemic cardiomyopathy-continue metoprolol, losartan, SGLT2 inhibitor. Aldactone to be started as outpatient
# Hypertension-continue losartan and metoprolol
# Hyperlipidemia-continue atorvastatin
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 NPH 14 units now
# Hypothyroidism-continue levothyroxine 100 mcg
# History of Bradley cell carcinoma in 2001
# DVT prophylaxis-Lovenox
# Full code
D/W RN at bed side
Part of this note was created using voice recognition system. Occasional wrong word or��sound alike� substitutions may have inadvertently occurred due to the inherent limitations of voice recognition software. If noted kindly bring it to my
attention for correction.
Anticipated Discharge: Within 24 hours
Subjective/Interval History
-
Date of Service: March 24, 2025
Objective Data
-
Labs:
Laboratory Results
03/24/25 03/24/25
04:24 05:12
WBC 6.8
Hgb 12.4
Hct 35.4 L
Plt Count 145
Sodium 140
Potassium 4.1
Chloride 107
Carbon Dioxide 26
BUN 15
Creatinine 0.7
Glucose 210 H
Calcium 9.7
Total Bilirubin Pending
AST Pending
ALT Pending
Alkaline Phosphatase Pending
Vital Signs:
Vital Signs
Temp Pulse Resp BP Pulse Ox
97.7 F 72 20 116/84 98
03/24/25 08:20 03/24/25 08:10 03/24/25 08:20 03/24/25 09:02 03/24/25 08:30
I&O
03/23/25 03/24/25 03/25/25
06:59 06:59 06:59
Intake Total 500 / 500 480 / 480
Balance 500 / 500 480 / 480
[2025-03-24 09:49] LABS: ALT (SGPT) 23 U/L (0-35); AST (SGOT) 27 U/L (14-36); Albumin 3.8 g/dl (3.5-5.0); Alkaline Phosphatase 93 U/L (38-126); Direct Bilirubin 0.1 mg/dl (0.0-0.4); Lipase 93 U/L (23-300); Total Bilirubin 1.2 mg/dl (0.2-1.3); Total Protein 6.1 g/dl (6.3-8.2)
[2025-03-24] MEDS: PROTONIX 40 MG PO (09:52)
[2025-03-24] MEDS: NOVOLOG FLEXPEN-LOW RESISTANCE 2 UNITS SC (09:52)
[2025-03-24] MEDS: NOVOLIN N vial 0.14 UNITS SC (10:39)
[2025-03-24] MEDS: CLARITIN 10 MG PO (10:39)
[2025-03-24] MEDS: DEBROX EAR DROPS 5 DROP OTIC (10:46)
--- NOTE | 2025-03-24 10:49 | W.PN.CD ---
Addendum entered and electronically signed by Sangeeta Walter MD 03/24/25 12:17:
Patient is seen and evaluated personally. I agree with the documentation, plan of care, and physical examination as discussed personally with nurse practitioner and documented below.
Briefly, 79-year-old woman with non-ST elevation myocardial infarction status post PCI to LAD and PCI to RCA by Dr. Leger with subsequent ongoing chest pain for which she underwent a second staged PCI by Dr. Mahoney, with PCI to LCx and ramus.
Patient did have mild chest pain last night which was atypical in nature. It was reproducible and tender to touch and was treated with Ultram. Pain is resolved at this time. At this time patient can be discharged home with DAPT for 12 months
including aspirin and Plavix. Following which aspirin should stay indefinitely. Continue hypertensive statins. Repeat echo in 2 to 3 months.
Original Note:
Today's Communication / Plan
-
Ambulate. If no further CP can consider d/c
Con't GDMT as tolerated.
Impression / Plan
-
Impression/Plan: 79 y/o female with IDDM, HTN, HLD admitted with NSTEMI s/p PCI to LAD and RCA 03/20/25.
#NSTEMI
-Troponin peaked at 0.797.
-S/P PCI to culprit 99% mLAD lesion with MARIA T II flow ([employer] [place] 3.0 x 30 TAWANDA, post dilated with 3.0 NCB distally, 3.5 NCB prox/mid) and non-culprit 95% mRCA lesion ([employer] [place] 3.5 x 38 TAWANDA, post dilated with a 3.5 NCB)
on 03/20/2025.
-Recurrent chest pain compelled relook cath, leading to PCI of 90% pLCx lesion ([employer] [place] 2.0 x 22 TAWANDA, post dilated with 2.0 NCB throughout, 2.25 x 15 in the proximal margin) and tandem 70%/90% ostial/proximal RI lesions ([employer] [place] 2.0 x
26 TAWANDA, post dilated with 2.25 NCB) on 03/22/2025.
-Chest pain has improved, but it remains unclear if these lesions were responsible for her discomfort.
-DAPT with aspirin and clopidogrel for 12 months, followed by aspirin indefinitely.
-Aggressive secondary prevention with high dose, high potency statin.
-Echocardiogram shows LVEF = 35-40% with LAD WMA. Repeat echo 03/23/25 Mildly reduced left ventricular systolic function Left ventricular ejection fraction is 45-50% by
visual assessment.Suggestion of mild anterior and anteroapical hypokinesis.
-back pain improved with pain medication early this am. no recurrent pain. Using walker to bathroom no recurrent pain.
#ICMO
-Acute.
-Echo 03/23/25 Mildly reduced left ventricular systolic function. Left ventricular ejection fraction is 45-50% by visual assessment.
Suggestion of mild anterior and anteroapical hypokinesis.
-GDMT with metoprolol, losartan.
- Plan was to start dapagliflozin 10 mg daily.
-Consider addition of aldactone as outpatient.
-Repeat echocardiogram in 90 days.
#HTN
-Chronic, controlled.
-Continue losartan and metoprolol.
#HLD
-Chronic.
-Total cholesterol = 162, LDL = 107, HDL = 41, Triglycerides = 71.
-D/C pravastatin.
-Continue atorvastatin 40 mg daily.
-Goal LDL < 55.
#IDDM2
-Chronic, complicated by neuropathy.
-Insulin per primary service.
-She would benefit from GLP-1 agonists at discharge.
Subjective/Interval History:
This am had back pain but responded to ultram , no recurrent symptoms.
DATA:
Cardiac Catheterization/PCI, 03/20/2025:
CONCLUSIONS
1. Coronary angiography as described with severe culprit 99% stenosis of the mid-LAD with TIMI2 flow and non-culprit high grade disease in a large RCA.
2. Normal LV filling pressure and no aortic stenosis.
2. Successful PCI to LAD for acute ME with a 3.0x30 mm [place] TAWANDA post dilated to 3.0 mm distally and 3.5 mm elsewhere.
2. Successful PCI to RCA with a 3.5x38 mm [place] TAWANDA post-dilated to 3.5 mm throughout.
Transthoracic Echocardiogram, 03/20/2025:
CONCLUSIONS
TDS: Echo contrast recommended for future studies.
Normal LV size with moderately reduced systolic function.
LVEF is 35-40% by visual estimation. LAD territory wall motion abnormality.
Stage I diastolic dysfunction suggestive of abnormal relaxation.
Normal right ventricular size and function.
No significant valvular disease.
Estimated pulmonary artery pressure of 36 mmHg assuming a right atrial pressure
of 3 mmHg.
No prior study available for comparison.
Physical Exam
Vital Signs/Labs
Vital Signs
Temp Pulse Resp BP Pulse Ox
97.7 F 72 20 116/84 98
03/24/25 08:20 03/24/25 08:10 03/24/25 08:20 03/24/25 09:02 03/24/25 08:30
03/23/25 03/24/25 03/25/25
06:59 06:59 06:59
Actual Weight 73 kg 72.8 kg
03/24/25 04:24
03/24/25 05:12
APTT Cancelled 03/22/25 18:30
Magnesium 1.7 mg/dl (1.6-2.3) 03/24/25 05:12
Triglycerides 71 mg/dl (10-149) 03/20/25 06:11
LDL Cholesterol, Calc 107 mg/dl 03/20/25 06:11
VLDL Cholesterol, Calc 14 mg/dl (0-30) 03/20/25 06:11
HDL Cholesterol 41 mg/dl 03/20/25 06:11
03/20/25
06:11
Epb-D-Shtzvpybyfw Pept 697
LAB Results
03/22/25 03/22/25 03/24/25
12:49 18:58 05:12
Troponin I 0.864 H* 0.761 H* 0.684 H*
03/24/25 03/24/25
11:00 17:00
Troponin I Cancelled Cancelled
Physical Exam
Constitutional: No acute distress
Cardiovascular: Rhythm & rate is regular and Pedal edema is absent
Respiratory: Respiratory effort normal and Lungs clear to auscul.
GI: Soft, Non tender and Normal bowel sounds
Neuro/Psych: AO x 3
Data Reviewed
-
Date of Service: March 24, 2025
EKG: Tracing Personally Visualized and interpreted (NSR 77 bpm, non specific T wave abn. no acute changes. )
Labs: Labs Reviewed by me
[2025-03-24] MEDS: NOVOLOG FLEXPEN-LOW RESISTANCE 4 UNITS SC (12:03)
[2025-03-24 12:06] LABS: Glucose - Point of Care 336 mg/dl (70-99)
[2025-03-24] MEDS: NOVOLOG FLEXPEN 5 UNITS SC (13:42)
[2025-03-24 13:43] LABS: Glucose - Point of Care 337 mg/dl (70-99)
[2025-03-24 14:59] LABS: Glucose - Point of Care 203 mg/dl (70-99)
--- NOTE | 2025-03-24 16:26 | PTCARENOTE ---
Pt with some higher blood sugars today, NPH insulin and additional novolog given per with improvement. Pt denied any chest discomfort, walked in han with RN without problem. Pt seen by Marlee and Javier. Telemetry and IV devices
removed. Discharge instructions reviewed with pt regarding medications and their possible side effects, activity guidelines, fall risk, wound care, reporting cares and concerns and follow up appt's. Good understanding by pt who can be forgetful,
excellent understanding by her ED RN daughter, pt lives with her son and VN will visit. Pt escorted out via wheelchair and discharged to home.
--- NOTE | 2025-03-25 08:11 | W.DS.TRANS ---
DC Summary - [employer]
-
Discharge Instructions:
Discharge Diagnosis/Procedures NSTEMI, s/p angioplasty and stent x1 to Left
Anterior Descending artery and x1 to Right
Coronary artery (03/19/25)
Angioplasty with stent to left circumflex and
ramus arteries (03/22/25)
Ischemic cardiomyopathy
Hypertension
Hyperlipidemia
Diabetes
Hypothyroidism
History of Bradley cell carcinoma
Diet Low Cholesterol
Activity As tolerated
Driving Restrictions No driving for 24 hours
Bathing Restrictions None
Others Tests echo in 3 months
Other Services Cardiac Rehab
Instructions:
Stand-Alone Forms: DC Instructions- Cath/EP Lab
Changes to Home Medications: Yes
Discharge Medications:
DC Medications w/original date entered in [facility]
levothyroxine 100 mcg tablet (Synthroid) 100 mcg PO DAILY Thyroid 03/20/25
insulin glargine 100 unit/mL subcutaneous cartridge 14 unit SC QPM 03/21/25
aspirin 81 mg chewable tablet 81 mg PO DAILY #90 tabs 03/22/25
atorvastatin 40 mg tablet 40 mg PO QPM #30 tabs 03/22/25
clopidogrel 75 mg tablet 75 mg PO DAILY #90 tabs 03/22/25
dapagliflozin propanediol 10 mg tablet (Farxiga) 10 mg PO DAILY #30 tabs 03/22/25
losartan 100 mg tablet 50 mg (1/2 x 100 mg) PO DAILY Blood Pressure #0 tabs 03/22/25
metoprolol succinate 25 mg tablet,extended release 24 hr 25 mg PO DAILY #30 tabs 03/22/25
Home Medication Changes
metoprolol, asa, plavix new
changed Losartan and Statin
Pending Results: No
== END 2025-03-24 16:10 | disposition home health service (06) | DRG 321 ==
LOC: IVU 02:15
PROVIDERS: Nurse Practitioner; Nurse Practitioner Adult Health; Physician Assistant Medical; Student in an Organized Health Care Education/Training Program; ADMITTING PHYSICIAN Internal Medicine; ATTENDING PHYSICIAN Hospitalist; EMERGENCY PHYSICIAN Student in an Organized Health Care Education/Training Program; FAMILY PHYSICIAN Internal Medicine; OTHER PHYSICIAN Internal Medicine Cardiovascular Disease
PROC: B2111ZZ Fluoroscopy of Multiple Coronary Arteries using Low Osmolar Contrast (ICD-10-PCS; 2025-03-20)
PROC: B241ZZ3 Ultrasonography of Multiple Coronary Arteries, Intravascular (ICD-10-PCS; 2025-03-20)
PROC: 4A023N7 Measurement of Cardiac Sampling and Pressure, Left Heart, Percutaneous Approach (ICD-10-PCS; 2025-03-20)
PROC: 027135Z Dilation of Coronary Artery, Two Arteries with Two Drug-eluting Intraluminal Devices, Percutaneous Approach (ICD-10-PCS; 2025-03-20)
PROC: B240ZZ3 Ultrasonography of Single Coronary Artery, Intravascular (ICD-10-PCS; 2025-03-22)
DX: I21.4 Non-ST elevation (NSTEMI) myocardial infarction (principal); I50.20 Unspecified systolic (congestive) heart failure; I25.5 Ischemic cardiomyopathy; I25.10 Atherosclerotic heart disease of native coronary artery without angina pectoris; I10 Essential (primary) hypertension; E78.00 Pure hypercholesterolemia, unspecified; E11.649 Type 2 diabetes mellitus with hypoglycemia without coma; E11.40 Type 2 diabetes mellitus with diabetic neuropathy, unspecified; E03.9 Hypothyroidism, unspecified; I95.9 Hypotension, unspecified; G89.29 Other chronic pain; R10.13 Epigastric pain; Z85.821 Personal history of Merkel cell carcinoma; Z79.4 Long term (current) use of insulin
CPT/HCPCS: 93308; 71275; 74175; 80048; 80053; 80061; 82248; 82550; 82962; 83036; 83690; 83735; 83880; 84484; 85025; 85027; 85347; 85730; 92978; 92979; 93005; 93306; 93458; 96374; 96375; 97162; 99152; 99153; 99291; C1725; C1753; C1760; C1769; C1874; C1887; C1894; C9600; C9606; Q9967

== ENCOUNTER → 2025-06-06 11:10 | Outpatient (REF) | payer OTHER, SELFPAY | LOC: HWRAD 11:10 | PROVIDERS: ATTENDING PHYSICIAN Internal Medicine | DX: M54.9 Dorsalgia, unspecified (principal); R07.81 Pleurodynia | CPT/HCPCS: 71111; 72050; 72072; 72110 ==

== ENCOUNTER 2025-07-16 15:10 | Emergency (ER) | payer OTHER, SELFPAY ==
[2025-07-16 15:17] VITALS: BP 141/66
[2025-07-16 15:41] LABS: Hematocrit 39.2 % (37.0-47.0); Hemoglobin 13.3 g/dL (12.0-16.0); Mean Corp Hgb Conc. 33.9 g/dL (33.0-37.0); Mean Corpuscular Volume 83.9 fL (81.0-99.0); Nucleated Red Blood Cells % 0 %; Platelet Count 149 10^3/uL (130-400); Red Cell Dist. Width 14.2 % (11.5-14.5)
[2025-07-16 16:00] LABS: ALT (SGPT) 33 U/L (0-35); AST (SGOT) 27 U/L (14-36); Albumin 4.4 g/dl (3.5-5.0); Alkaline Phosphatase 101 U/L (38-126); Blood Urea Nitrogen 21 mg/dl (7-17); Calcium 10.0 mg/dl (8.4-10.2); Carbon Dioxide 28 mmol/L (22-30); Chloride 107 mmol/L (98-107); Glucose 148 mg/dl (70-99); Potassium 4.1 mmol/L (3.5-5.1); Sodium 141 mmol/L (135-145); Total Protein 6.7 g/dl (6.3-8.2); eGFR > 60.00
[2025-07-16 16:05] LABS: Troponin I < 0.012 ng/ml
--- NOTE | 2025-07-16 17:00 | ED.GENMED ---
History of Present Illness
General
Chief Complaint: Chest Pain
Time Seen by Provider: 07/16/25 17:00
History of Present Illness
History of Present Illness:
FOCUSED PAST MEDICAL HISTORY
- The patient has a history of CAD, IDDM
REVIEW OF OLD RECORDS
- The patient was admitted with a non-STEMI and had a stent placed to the LAD and a stent placed to the RCA on 03/19/2025. She also had angioplasty on 03/22/2025 with stent to the left circumflex and ramus arteries. She has a history of an ischemic
cardiomyopathy with a EF of 35 to 40% which improved to 45 to 50% as of 03/23/2025
Note:
CHIEF COMPLAINT(S)
Pain in the shoulder, chest, and underneath the breast.
HISTORY OF PRESENT ILLNESS
The patient is an 79-year-old female who presented with pain in the left shoulder, chest, and underneath her breast. This episode began gradually over the past several weeks, and she initially attributed her symptoms to fatigue. The pain has been
intermittent but worsened over the last five to six days. The patients symptoms intensified today, prompting her to seek medical attention via ambulance.
In March, the patient underwent a cardiac procedure where stents were placed. She reports that todays pain does not feel like the symptoms experienced in March, which she described as primarily abdominal pain and pressure. The patient noted todays pain
was similar to cardiac pain but distinct from her prior episodes.
Throughout the past couple of days, she has also experienced difficulty walking with her walker due to arm pain and described tenderness in her left shoulder and armpit area without a visible rash, except for a small rash noted on the upper left.
EMS provided aspirin en route to the hospital, and further evaluation in the emergency department indicated that her EKG and cardiac blood work were better than previous measures. She reported the pain when moving her shoulder and when applying
pressure to the affected area.
CHRONIC MEDICAL CONDITIONS SIGNIFICANTLY AFFECTING CARE
The patient has diabetes, as evidenced by the present glucose sensor.
PHYSICAL EXAM
General: Alert and no acute distress. Appears comfortable
Skin: Warm, dry.
Head: Normocephalic, atraumatic.
Neck: Supple, trachea midline.
Eye, Ears, Nose, Mouth, and Throat: Oral mucosa moist.
Cardiovascular: Normal peripheral perfusion, no edema. Regular rhythm
Respiratory: Respirations are non-labored.
Gastrointestinal: Abdomen nondistended.
Back: Normal range of motion, normal alignment.
Musculoskeletal: Rather significant discomfort is noted with palpation in the left shoulder area along with certain position changes at the left shoulder
Neurological: Alert and oriented to person, place, time, and situation; no focal neurological deficit observed.
Psychiatric: Cooperative, appropriate mood and affect. There may be some mild cognitive deficits
PROBLEM LIST
Acute Problems:
- Shoulder and chest pain.
- Exertional pain and left shoulder tenderness.
Chronic Problems:
- Diabetes mellitus.
PLAN
1. Repeat cardiac blood work to monitor for any changes.
2. Administer Tylenol for pain relief.
3. Conduct an x-ray to further investigate the shoulder pain.
4. Follow up with the patients jewelry engraver at the [facility] if necessary.
DIFFERENTIAL DIAGNOSIS
The Differential Diagnosis includes, in no particular order and is not limited to:
1. Angina pectoris
2. Myocardial infarction
3. Pericarditis
4. Musculoskeletal pain
5. Subacromial bursitis
6. Rotator cuff injury
7. Costochondritis
8. Referred pain from cervical radiculopathy
9. Herpes zoster (based on the rash description)
10. Pulmonary embolism
Disposition:
SUMMARY OF ENCOUNTER
The patient, an 79-year-old female, presented to the emergency department with pain in the left shoulder, chest, and underneath her breast, which had been worsening over the past five to six days. Her pain was distinct from the symptoms she
experienced during a cardiac event in March when stents were placed. An EKG and cardiac blood work conducted in the ED showed no signs of a heart attack. Shoulder and chest x-rays were also conducted and appeared normal.
DISPOSITION
Discharge to home.
ASSESSMENT
The patients presentation is suggestive of musculoskeletal pain, given the normal cardiac workup and shoulder x-ray findings. Her symptoms are distinct from a cardiac origin based on her history and current tests.
PLAN
The patient is advised to follow up with her jewelry engraver, Dr. Nolasco at the [facility]. Secure transport to home through her son.
INDEPENDENT REVIEW OF LABS AND INTERPRETATION OF TESTS
My independent review of the cardiac blood work showed no signs of myocardial infarction. My independent interpretation of the x-ray revealed no acute findings.
FOLLOW-UP INSTRUCTIONS
The patient is instructed to follow up with her jewelry engraver, Dr. Nolasco at the [facility]. She needs to arrange follow-up with the jewelry engraver to monitor her cardiac status.
MEDICATION RECONCILIATION
Aspirin administered by EMS en route to the hospital.
MEDICAL DECISION MAKING
-Complexity of Data Reviewed: Chronic conditions affecting care include diabetes mellitus. Differential diagnosis considered: angina pectoris, myocardial infarction, pericarditis, musculoskeletal pain, subacromial bursitis, rotator cuff injury,
costochondritis, referred pain from cervical radiculopathy, herpes zoster, and pulmonary embolism.
-Data:
Category 1
My independent interpretation of the x-ray appeared normal and cardiac blood work indicated no myocardial infarction.
-Risk: Prescription medication was prescribed. Consideration of Admission/Observation: Escalation of care including admission/observation was considered given the complexity and risk of the patients presenting complaint, exam findings, and/or their
underlying comorbidities. However, ultimately I feel the patient is safe for outpatient management with close follow-up. Reasoning: Work-up reassuring, does not reveal any acute life/organ-threatening processes, patients symptoms well controlled
upon reevaluation, reexamination is reassuring, vitals are stable, patient agreeable with discharge, reliable for follow-up.
DIAGNOSIS
Musculoskeletal pain, unspecified (ICD-10: M79.1)
RADIOLOGY
- Chest x-ray and shoulder x-ray showed no acute abnormality
EKG
- Sinus 72, the prior T wave inversion is no longer seen on the lateral leads today, nonspecific ST abnormality
LABS
- CBC and chemistries unremarkable, troponin less than 0.012
Past History
Past History
ED Past Medical History: Cancer (Bradley cell), HTN, Hypercholesterolemia and Hypothyroidism
ED Past Surgical History: Orthopedic (left knee replacement, cervical spine surgery)
Social History
Tobacco: Non-smoker
Personal:
Living: with family
Phy Exam
Physical Exam
Physical Exam:
See HPI
Scores
Heart Score for Chest Pain Patients
STEMI patient?: Not applicable
Course
Orders/Labs/Results
Orders:
Orders
07/16/25 15:13
Electrocardiogram (*1) Urgent
Reason for Study: Chest Pain
EKG- Treatment ONCE
07/16/25 15:30
Complete Blood Count/With Diff Urgent
Comprehensive Metabolic Panel Urgent
Troponin I Urgent
07/16/25 17:09
Acetaminophen [Tylenol] 1,000 mg PO NOW STA
CR Shoulder - Left Min 2 View* Urgent
Comment:
Reason For Exam: pain
07/16/25 17:10
CR Chest - 2 Views Urgent
Comment:
Reason For Exam: left pain
07/16/25 18:31
Troponin I Urgent
Abnormal Lab Results
07/16/25
15:30
MPV 10.9 H fL
(7.4-10.4)
BUN 21 H mg/dl
(7-17)
Glucose 148 H mg/dl
(70-99)
07/16/25 15:30
07/16/25 15:30
Vital Signs
Initial and Last Documented VS:
Initial Vital Signs
Temp Pulse Resp Pulse Ox
36.9 C 74 18 98
07/16/25 15:14 07/16/25 15:14 07/16/25 15:14 07/16/25 15:14
Last Documented Vital Signs
Temp Pulse Resp BP Pulse Ox
36.9 C 59 13 141/66 100
07/16/25 15:14 07/16/25 18:30 07/16/25 18:30 07/16/25 15:17 07/16/25 18:30
*Pulse Oximetry
SaO2: 98
Oxygen Mode of Delivery: Room air
Patient hypoxic: no
*Critical Care Note
Total Time (30-74mins, 75-104mins- exclusive of procedures): Not Applicable
ED Attending Note
-
Portions of this chart may have been created with voice recognition software.� Occasional wrong word or��sound alike� substitutions may have occurred due to the inherent limitations of voice recognition software.
Discharge Plan
Departure
Patient Disposition: Home (Routine Discharge)
Date of Disposition: 07/16/25
Time of Disposition: 20:20
Patient with high blood pressure during this ER visit?: Yes
Discharge Problem:
Chest pain
Instructions: Chest Pain CBC Follow Up, BLOOD PRESSURE
Prescriptions:
No Action
levothyroxine [Synthroid] 100 mcg Tablet
100 mcg PO DAILY
insulin glargine 100 unit/mL Cartridge
14 unit SC QPM
aspirin 81 mg Tablet,Chewable
81 mg PO DAILY Qty: 90 0RF
clopidogrel 75 mg Tablet
75 mg PO DAILY Qty: 90 0RF
metoprolol succinate 25 mg Tablet Extended Release 24 Hr
25 mg PO DAILY Qty: 30 0RF
losartan 100 mg Tablet
50 mg PO DAILY Qty: 0 0RF
dapagliflozin propanediol [Farxiga] 10 mg tablet
10 mg PO DAILY Qty: 30 0RF
atorvastatin 40 mg tablet
40 mg PO QPM Qty: 30 0RF
Referrals:
Mike Solano MD [Active, Cardiology]
UNKNOWN - PT DOES,NOT KNOW [Unknown Provider]
Activity Restrictions/Additional Instructions:
Follow-up with your jewelry engraver. Your records indicate that you have been seen by [facility] cardiology in the past�Dr. Xiomara is in that group. 2 sets of cardiac blood work were obtained and were both normal and showed no sign of heart attack.
Return here if worse or other concerns.
Interventions
Interventions:
*Risk Screen - Suicide Last Done: 07/16/25 15:14
*General Assessment Last Done: 07/16/25 15:14
*Neglect/Abuse Screening Last Done: 07/16/25 15:14
*ED- Fall Risk Assessment Last Done: 07/16/25 19:53
ED- Cardiac Assessment Last Done: 07/16/25 17:39
Discharge Date and Time
Print Language: [id number]
[2025-07-16] MEDS: TYLENOL 1000 MG PO (17:18)
[2025-07-16 17:40] VITALS: BMI 33.4
[2025-07-16 19:14] LABS: Troponin I < 0.012 ng/ml
[2025-07-16 21:57] VITALS: BP 132/58
== END 2025-07-16 21:57 | disposition home or self-care (01) ==
LOC: EMR 15:10
PROVIDERS: Emergency Medicine; EMERGENCY PHYSICIAN Emergency Medicine; FAMILY PHYSICIAN Internal Medicine
DX: R07.89 Other chest pain (principal); M25.512 Pain in left shoulder; R21 Rash and other nonspecific skin eruption; R26.2 Difficulty in walking, not elsewhere classified; E11.9 Type 2 diabetes mellitus without complications; I10 Essential (primary) hypertension; I25.10 Atherosclerotic heart disease of native coronary artery without angina pectoris; E78.00 Pure hypercholesterolemia, unspecified; I25.5 Ischemic cardiomyopathy; E03.9 Hypothyroidism, unspecified; I25.2 Old myocardial infarction; Z79.4 Long term (current) use of insulin; Z95.5 Presence of coronary angioplasty implant and graft; Z96.652 Presence of left artificial knee joint; Z88.1 Allergy status to other antibiotic agents; Z88.5 Allergy status to narcotic agent
CPT/HCPCS: 99285; 71046; 73030; 80053; 84484; 85025; 93005

== ENCOUNTER → 2025-08-20 13:05 | Outpatient (REF) | payer OTHER, SELFPAY | LOC: HWRCS 13:05 | PROVIDERS: ATTENDING PHYSICIAN Nurse Practitioner; FAMILY PHYSICIAN Internal Medicine | DX: I25.5 Ischemic cardiomyopathy (principal) | CPT/HCPCS: 93306 ==

== ENCOUNTER → 2025-09-28 15:15 | Outpatient (REF) | payer OTHER, SELFPAY | LOC: HWRAD 15:15 | DX: M54.16 Radiculopathy, lumbar region (principal); M54.42 Lumbago with sciatica, left side | CPT/HCPCS: 72110 ==

== ENCOUNTER → 2025-10-09 15:39 | Outpatient (REF) | payer OTHER, SELFPAY | LOC: MRI 3T 15:39 | DX: M54.16 Radiculopathy, lumbar region (principal) | CPT/HCPCS: 72148 ==